=== PATIENT | female | born 1965 | race Caucasian/White ===

== ENCOUNTER 2018-01-25 16:28 | Emergency (ER) | payer MEDICAID, SELFPAY ==
[2018-01-25 16:30] VITALS: BP 142/90; PULSE 78; RESP 18; TEMP 36.8; O2SAT 100; BMI 28.4
[2018-01-25 17:59] LABS: Mucous, Urine 0 SEEN /hpf (<or=2+); Red Blood Cells-Urine 0 SEEN /hpf (0-5); White Blood Cells 0 SEEN /hpf (0-5)
--- NOTE | 2018-01-25 18:02 | CT_ITS ---
STUDY: CT ABDOMEN AND PELVIS WITH CONTRAST REASON FOR EXAM: Female, 52 years old. Abdominal pain since May 2017 after colonoscopy. Recently worsened. RADIATION DOSAGE (If Supplied By Facility): CTDIvol = ( 11.96 ) mGy, DLP = ( 698.56 ) mGycm TECHNIQUE: Transaxial images were obtained from the dome of the diaphragm to the symphysis pubis with oral contrast. 75 ml of Isovue 300 contrast was administered. Sagittal and coronal images were reconstructed. Individualized dose optimization techniques were used for this CT. COMPARISON: None. FINDINGS: The visualized lung bases are unremarkable. The visualized portions of the heart are within normal limits. Normal liver. There is non-visualization of the gallbladder, which may be secondary to either contraction or a prior cholecystectomy. Normal spleen. Normal pancreas. Normal bilateral adrenal glands. Normal right kidney. Normal left kidney. Normal bilateral ureters. Normal visualized stomach. There is marked wall thickening of the terminal ileum. Otherwise normal small intestine. Normal colon. There is non-visualization of the appendix. There is lymphadenopathy in the cecal mesocolon. There is diffuse atherosclerotic calcification of the abdominal aorta, without a demonstrated aneurysm. Normal inferior vena cava. Normal retroperitoneum. The bladder is incompletely distended. There is circumferential wall thickening without mass or filling defect. Normal vaginal cuff. There are multiple phleboliths in the pelvis without lymphadenopathy. There are soft tissue densities along both pelvic sidewalls. The represent retained ovaries. No free air or free fluid is seen within the peritoneal cavity. Normal abdominal wall. Minimal degenerative changes of the lumbar spine CT/Abdomen/Pelvis WITH Contrast IMPRESSION: 1. Thickened distal and terminal ileum with lymphadenopathy in the cecal mesocolon. Ileitis. Question Crohn's disease. 2. Status post cholecystectomy and hysterectomy. There is no other evidence of acute intra-abdominal abnormality. Electronically Signed: Jaren Patiño DO at 20:03 EDT Tel [phone], Service support ,
[2018-01-25 18:03] LABS: Absolute Lymphocyte Count 2.75 X10^3/ul (0.83-4.51); Basophil# 0.02 X10^3/uL; Basophil% 0.1 % (0-1); Eosinophil# 0.06 X10^3/uL; Eosinophils% 0.4 % (0-5); Hematocrit 43.3 % (37-47); Hemoglobin 14.2 g/dl (12.0-15.0); Lymphocyte # 2.75 X10^3/ul (4.0); Lymphocyte % 20.5 % (19-41); Mean Corp Hgb Conc 32.8 g/gl (32-36); Mean Corpuscular Hgb 29.8 pg (27.0-32.0); Mean Corpuscular Volume 90.8 fL (81-99); Mean Platelet Vol. 9.7 fl (6.2-12.0); Monocyte# 0.54 X10^3/uL; Neutrophil # 9.99 X10^3/uL (2.7-7.7); Neutrophil % 74.8 % (47-70); Platelet Count 342 K/mm3 (150-450); RBC Distribution Width CV 12.4 % (11.6-14.6); RBC Distribution Width SD 41.2 fl (35.1-43.9); Red Blood Count 4.77 M/mm3 (4.2-5.4); White Blood Count 13.4 K/mm3 (4.4-11.0)
--- NOTE | 2018-01-25 18:03 | EKG12_ITS ---
Test Reason : ABD PAIN Blood Pressure : / mmHG Vent. Rate : 073 BPM Atrial Rate : 073 BPM P-R Int : 168 ms QRS Dur : 070 ms QT Int : 400 ms P-R-T Axes : 002 092 068 degrees QTc Int : 440 ms Normal sinus rhythm Normal ECG Confirmed by REBEKAH HODGES, BELKIS ([id number]), industrial editor RANDY MORRELL ([id number]) on 01/27/2018 2:17:12 PM Referred By: Pj Vega Confirmed By:BELKIS WELCH MD
[2018-01-25 18:07] LABS: Color, Urine Yellow (Yellow); Glucose, Dipstick Normal (Normal); Ketone-Dipstick Negative (Negative); Leukocyte Esterase-Dipstick Negative /ul (Negative); Nitrite-Dipstick Negative (Negative); Occult Blood-Urine Negative /ul (Negative); POSITIVE COUNT NO; POSITIVE DIFFERENTIAL NO; POSITIVE MORPHOLOGY NO; Protein-Dipstick Negative (Negative); Specific Gravity, Urine 1.015 (1.002-1.030); Urine Bilirubin Dipstick Negative (Negative); Urine Clarity Sl. Cloudy (Clear); Urine Urobilinogen Normal (Normal)
[2018-01-25] MEDS: Ketorolac 30 MG/ML Syringe IV (18:15)
[2018-01-25] MEDS: 0.9% Normal Saline 1,000 ML 1000 ML IV (18:15)
[2018-01-25] MEDS: Ondansetron 4 MG/2 ML Vial IV (18:15)
[2018-01-25 18:19] LABS: Anion Gap 5 (5-15); BUN 16 mg/dL (7-18); Calcium,Total 9.7 mg/dL (8.5-10.1); Chloride 101 mmol/L (98-107); EST Glomerular Filtration Rate 79 mL/min (>60); Est Glom Filt Rate - Afr Amer 96 mL/min (>60); Estimated Creatinine Clearance 57.74 ml/min; Glucose 113 mg/dL (74-106); Potassium 3.7 mmol/L (3.5-5.1); Sodium Level 140 mmol/L (136-145)
[2018-01-25 18:22] LABS: Amorphous Sediment 1+; Bacteria 3+ /hpf (None Seen); Squamous Epithelial Cells - UA 0-5 SEEN /hpf (5-10)
[2018-01-25 18:33] LABS: AST(SGOT) 13 U/L (15-37); Alanine Aminotransfer ALT/SGPT 17 U/L (13-56); Albumin, Serum 3.8 g/dL (3.2-5.0); Alkaline Phosphatase 110 U/L (45-117); Bilirubin, Direct 0.08 mg/dL (0.00-0.30); Globulin 4.2 g/dL (2.2-4.2)
[2018-01-25 18:34] LABS: Lipase 90 U/L (73-393)
--- NOTE | 2018-01-25 19:45 | RAD_ITS ---
STUDY: X-RAY CHEST REASON FOR EXAM: Female, 52 years old. Shortness of breath. TECHNIQUE: PA and lateral views of the chest. COMPARISON: November 30, 2015. FINDINGS: The lungs are clear and expanded. There is no demonstrated pleural abnormality. Normal size heart. Normal mediastinum and pete. Normal visualized pulmonary arteries. Normal visualized aortic arch and descending thoracic aorta. Normal visualized thoracic spine. Normal visualized ribs, clavicles, and shoulders. There is no demonstrated abnormality of the visualized soft tissue structures of the upper abdomen. RAD/Chest PA and Lateral IMPRESSION: No acute cardiopulmonary disease or major interval change. Electronically Signed: Jaren Patiño DO at 20:05 EDT Tel [phone], Service support ,
[2018-01-25 20:59] VITALS: BP 157/73; PULSE 71; RESP 18; O2SAT 100
--- NOTE | 2018-01-25 21:06 | ED.VISSUMM ---
- ER Visit Summary Date of Service: 01/25/18 Chief Complaint: Abdominal pain History of Present Illness: The patient is a 52 F who presents with abdominal pain. She had a colonoscopy last April. She states she has had persistent right-sided abdominal pain ever since that time. She has undergone outpatient workup including multiple laboratory tests ultrasounds and an MRI of the abdomen. She has been following with Dr. Leblanc. She has questionable inflammatory bowel disease. She was to be scheduled for repeat colonoscopy. Today she states her pain has been worse and she also feels short of breath although this may be because her abdomen feels bloated and it is difficult to take a deep breath. No fevers. No vomiting. Physical Examination: Afebrile vitals are stable Moist mucous membranes Heart regular rate and rhythm Lungs are clear Abdomen soft she has right mid and lower abdominal tenderness Alert Test Results: Labs notable for white blood cell count 13.4. Hepatic function lipase unremarkable. Urinalysis showed 3+ bacteria but otherwise normal. This was sent for culture. Chest x-ray shows no acute disease. EKG shows sinus rhythm at a rate of 73. CT of the abdomen and pelvis shows a thickened distal and terminal ileum with lymphadenopathy consistent with ileitis questionable Crohn's disease. Emergency Department Course and Treatment: Patient was treated with IV fluids Toradol Zofran here. She is resting comfortably on reevaluation. I spoke to Dr. Charles,, Dr. Cho's partner. My plan for oral steroids and discharge with outpatient follow-up. Patient understands to return for new or worsening symptoms. Patient discharged. Treatment Plan: [] Disposition: Discharge Impression: Ileitis This note was generated with [employer] dictation software. It may contain incorrect words, spelling, and punctuation that were not noted in review of the chart prior to signing ED Disposition - Plan for ED Patient: Chief Complaint: Abd Pain Referrals: Garret Mcdermott DO [Primary Care Provider] -
--- NOTE | 2018-01-25 21:09 | ED.DEP ---
ED Disposition - Plan for ED Patient: Chief Complaint: Abd Pain Instructions: ED Inflam Bowel Disease Crohn Prescriptions: Prednisone [Deltasone] 60 mg PO DAILY #15 tab Referrals: Garret Mcdermott DO [Primary Care Provider] -
== END 2018-01-25 21:28 | disposition home or self-care (01) ==
PROVIDERS: Emergency Provider Emergency Medicine; Family Provider Student in an Organized Health Care Education/Training Program; PCP Student in an Organized Health Care Education/Training Program
DX: K52.9 Noninfective gastroenteritis and colitis, unspecified (principal); I10 Essential (primary) hypertension; E78.00 Pure hypercholesterolemia, unspecified; F32.9 Major depressive disorder, single episode, unspecified; Z90.49 Acquired absence of other specified parts of digestive tract; Z90.710 Acquired absence of both cervix and uterus; Z79.899 Other long term (current) drug therapy; Z72.0 Tobacco use
CPT/HCPCS: 71046; 74177; 80048; 80076; 81001; 83690; 85025; 93005; 96361; 96374; 96375; 99283; J7030; Q9967; A4216; J2405

== ENCOUNTER → 2018-02-19 14:02 | Outpatient (CLI) | payer MEDICAID, SELFPAY ==
[2018-02-19 14:47] LABS: Hematocrit 39.8 % (37-47); Hemoglobin 12.7 g/dl (12.0-15.0); Mean Corp Hgb Conc 31.9 g/gl (32-36); Mean Corpuscular Hgb 29.6 pg (27.0-32.0); Mean Corpuscular Volume 92.8 fL (81-99); Mean Platelet Vol. 9.7 fl (6.2-12.0); Platelet Count 365 K/mm3 (150-450); RBC Distribution Width CV 12.6 % (11.6-14.6); RBC Distribution Width SD 42.3 fl (35.1-43.9); Red Blood Count 4.29 M/mm3 (4.2-5.4); Scan Indicated on CBC? Y/N NO; White Blood Count 10.7 K/mm3 (4.4-11.0)
[2018-02-19 15:10] LABS: BUN 13 mg/dL (7-18); BUN/Creat Ratio 16.8 RATIO (10-20); Calcium,Total 9.1 mg/dL (8.5-10.1); Chloride 105 mmol/L (98-107); Creatinine, Serum 0.77 mg/dL (0.55-1.02); EST Glomerular Filtration Rate 82 mL/min (>60); Est Glom Filt Rate - Afr Amer 100 mL/min (>60); Glucose 108 mg/dL (74-106); Sodium Level 142 mmol/L (136-145)
[2018-02-19 15:11] LABS: Anion Gap 7 (5-15)
== END ==
PROVIDERS: Family Provider Student in an Organized Health Care Education/Training Program; PCP Student in an Organized Health Care Education/Training Program; Visit Provider Physician Assistant
DX: Z01.810 Encounter for preprocedural cardiovascular examination (principal); Z01.818 Encounter for other preprocedural examination
CPT/HCPCS: 36415; 80048; 85027

== ENCOUNTER 2018-04-22 13:00 | Outpatient (RCR) | payer MEDICAID, SELFPAY ==
--- NOTE | 2018-03-30 09:32 | HP.OTEVAL_ITS ---
Patient's Visit Information DEREJE VIDAL is a 52 year old F, referred to Occupational Therapy by LEEROY Perkins, with a diagnosis of right RF/MF trigger finger. Date of Evaluation: 03/29/18 Occupational Therapist: Kaela Villasenor, OTR/L, CHT - Subjective Subjective: Pt states she had right RF and MF triggering for about 6 months. pt did try cortizone shots but they only lasted for two weeks. pt decided to have have sx. sx was on 2017. pt states now her fingers hurt and she can not open or close her hand without pain. pt is right handed. 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 pt has padded golve to help her with her job tasks. - Pain right hand 1 Pain Intensity Range: 1, 7 - ROM MP: Right RF 0/40 right MF 0/40 PIP: Right RF -10/95 right MF -10/90 DIP: right RF-15/40 right MF 0/40 ROM Comments: pt demo with limited ability to form a composite first- pain and tingling sesation. left hand deom all digit ROM WNL of flex and ext. - Strength Computer Education Professor: right 5# left 50# Lateral Pinch: right 6# left 10# Tripod Pinch: right 2# left 10# - Hand/Wrist Evaluation Total Score of Pain & Functional Sections: 74 - Goals Goal:: pt will demo a right girp strength of 45# to incrase her ind with BADLS and IADLS by d/c Goal:: pt will demo the ability for form a composite fist to manipulate coins by d/c Goal:: pt will report pain no greater than 2/10 with use of right hand with IADLs tasks by d/c Goal:: pt will demo understanding of scar mtg and desensitization by end of 2nd visit. - Rehabilitation General Assessment: pt is S/P right RF/MF trigger finger release. pt demom with scar hypertropy and scar sensitivity, limited digit ROM and decreased ability to place hand flat on table top. pt demo with weak right student career development specialist and pinch strength. The above deficits limit pts ind. with all BADLs and IADLs. pt would benefit from skilled OT services 3x week for 4 weeks to return pt to PLOF with her BADls and IADls. Rehabilitation Potential: Good - Anticipated Interventions Anticipated Interventions: A/AAROM/PROM, Strengthening, Scar Care, Triggerpoint Release, Desensitization, Modalities, Fine Motor Coord/Yamil - Visit Plan Frequency: 2-3x /Week Duration: 4 Weeks TEXT: Thank you for the opportunity to evaluate your patient. For Medicare and Medicare HMO plans, please review the plan of care and approve it. It will need to be FAXED BACK to us at [phone] for Medicare purposes. Please let me know if there are questions or concerns regarding this plan of care. Physician Signature: Date:
--- NOTE | 2018-04-22 16:11 | HP.OTDCSUM_ITS ---
HP - OT D/C Summary It has been my pleasure to treat DEREJE VIDAL under orders from LEEROY Perkins, for the diagnosis of right RF/MF trigger finger for a total of 9 visit(s). Please see the following information for a summary of their discharge status. 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 - Plan Plan: pt. reports that she is ready to be d/t, pt. reports that she is having no difficulties with her functional tasks or ADL's. - D/C Information Discharge Comments: pt. made great progress in therapy, scar tissue decreased, pain sensitivity decreased, and pt. strength has increased. pt. reports that she is I with her ADL's and reports no other concerns at this time. If there are questions or concerns regarding this patient's occupational therapy, please fell free to call me at [phone]. Thank you for the referral of this patient. Sincerely, Kaela Villasenor, OTR/L, CHT
== END 2018-04-22 19:00 | disposition home or self-care (01) ==
LOC: OT 13:00
PROVIDERS: Family Provider Student in an Organized Health Care Education/Training Program; PCP Student in an Organized Health Care Education/Training Program; Visit Provider Physician Assistant Surgical
DX: M65.341 Trigger finger, right ring finger (principal); M65.331 Trigger finger, right middle finger
CPT/HCPCS: 97035; 97110; 97140; 97166

== ENCOUNTER → 2019-01-17 | Outpatient (CLI) | payer OTHER, SELFPAY ==
--- NOTE | 2019-01-14 17:39 | HP.PCM_ITS ---
History and Physical Date of Admission: 01/17/19 HISTORY AND PHYSICAL - BREAST COMPLAINT ? Marleen Peterson 1965 ? ? REFERRING PHYSICIAN: ??Garret Mcdermott, DO ? CHIEF COMPLAINT:???Bilateral abnormal mammograms-left breast microcalcifications, right breast nodule ? HPI: The patient is a 53 year old female with a complaint of?an abnormal mammogram. ?The patient had a mammogram with ultrasound on December 27, 2018 for screening with follow-up diagnostic and right breast ultrasound on January 04, 2019?which demonstrated: ? IMPRESSION: SUSPICIOUS OF MALIGNANCY The round density in the right breast at 11 o'clock anterior depth is at an intermediate suspicion for malignancy. The multiple branching calcifications in the left breast central to the nipple middle depth are at a moderate suspicion for malignancy. ?A stereotactic biopsy is recommended. LIMITED ULTRASOUND OF RIGHT BREAST AND AXILLA: 01/04/2019 RESULT: Comparison is made to exams dated: ?12/27/2018 mammogram, 06/24/2017 mammogram, and 05/29/2016 mammogram - [facility]. Color flow and real-time ultrasound of the right breast 9 o'clock, and axilla regions were performed. ?Lombardo scale images of the real-time examination were reviewed. There is 6 mm x 5 mm irregular lesion in the right breast at 9 o'clock anterior depth. ?This irregular lesion is of mixed echogenicity. IMPRESSION: SUSPICIOUS OF MALIGNANCY The 6 mm x 5 mm irregular lesion in the right breast is at an intermediate suspicion for malignancy. ?A stereotactic biopsy is recommended. SUMMARY: Findings and recommendations discussed with the patient. Patient scheduled for a surgical consult. ? ? The patient denies a history of breast masses. ?She does?perform a self breast exam routinely -?she feels no suspicious abnormalities but has lost 50 pounds due to Crohn's disease and as a result notes her breast exam is changed significantly as her breasts are decreased in size and density. ?She notes no skin changes. ?She denies nipple discharge. ?She notes no axillary masses. ?She notes no family history of breast problems. ?She notes no significant breast trauma or breast difficulties in the past. ? The patient has had?3?pregnancies. ??Her last mammogram was June 24, 2017. ?Her last menstrual period was July 1988. ?Her first menstrual period was 1976. ? The patient is being seen by me today at the request of DrRegina?Garret Mcdermott, DO?for my opinion and advice regarding bilateral abnormal mammograms.? ? PAST?MEDICAL?HISTORY PAST MEDICAL HISTORY Diagnosis Date ? Anxiety ? ? Colitis 09/09/2017 ? Headache(784.0) ? ? from cervical disc disease ? Hyperlipidemia ? ? Hypertension ? ? Neck pain 2004 ? Tobacco use disorder ? ? Vitamin D deficiency 2012 ? PAST?SURGICAL?HISTORY PAST SURGICAL HISTORY Procedure Laterality Date ? DELIVERY ONLY ? 1987 ? CHOLECYSTECTOMY ? 1989 ? emergency, open procedure ? COLONOSCOP W/ OR W/O BRSH SPEC ? 04/28/2017 ? biopsies negative for colitis ? COLONOSCOPY ? 2011 ? COLONOSCOPY ? 02/2018 ? HAND SURGERY HX Right 01/2018 ? trigger finger ? HYSTERECTOMY HX ? 1988 ? MARILYN/BSO, menorrhagia ? PAST SURGICAL HISTORY OF ? 1986 ? left tubal , lysis of adhesions ? TONSILLECTOMY HX ? 1982 ? ? ? CURRENT?MEDICATIONS Current Outpatient Medications Medication Sig Dispense Refill ? Cholecalciferol, Vitamin D3, (VITAMIN D-3) 2,000 unit cap Take 1 capsule by mouth once daily. 30 capsule 5 ? sertraline (ZOLOFT) 100 mg tablet Take 2 tablets by mouth once daily. 60 tablet 5 ? dicyclomine (BENTYL) 20 mg tablet Take 1 tablet by mouth three times daily before meals. 90 tablet 3 ? naproxen (NAPROSYN) 500 mg tablet Take 1 tablet by mouth twice daily with meals. 60 tablet 1 ? cyclobenzaprine (FLEXERIL) 10 mg tablet Take 1 tablet by mouth three times daily as needed. 90 tablet 5 ? hyoscyamine sublingual (LEVSIN SL) 0.125 mg subl Dissolve 1 tablet under the tongue every 4 hours as needed (MAx 12 tabs per day) for up to 20 days. 20 tablet 0 ? tolterodine ER (DETROL LA) 4 mg 24 hr capsule Take 1 capsule by mouth once daily. 30 capsule 3 ? losartan (COZAAR) 25 mg tablet Take 1 tablet by mouth once daily. 30 tablet 11 ? buPROPion SR (ZYBAN SR; WELLBUTRIN SR) 150 mg 12 hr tablet TAKE 1 TABLET BY MOUTH TWICE DAILY 60 tablet 3 ? Omeprazole 20 mg TbEC Take 1 tablet twice a day 60 tablet 2 ? peg 3350-Electrolytes (GOLYTELY) 236-22.74-6.74 -5.86 gram suspension Refer to printed patient instructions that will be mailed to you. 4 L 0 ? peg 3350-Electrolytes (GOLYTELY) 236-22.74-6.74 -5.86 gram suspension Refer to printed patient instructions that will be mailed to you. 4 L 0 ? DAVID ROOT, BULK, MISC ? BIOTIN ORAL Take by mouth. ? ? ? KEY SEAL ROOT ORAL Take by mouth. ? ? ? dicyclomine (BENTYL) 10 mg capsule Take 1 capsule by mouth four times daily as needed. 120 capsule 2 ? estradiol (ESTRACE) 0.01 % (0.1 mg/gram) vaginal cream 2-3 TIMES PER WEEK 1 Tube 3 ? pravastatin (PRAVACHOL) 10 mg tablet Take 1 tablet by mouth once daily. 30 tablet 3 ? No current facility-administered medications for this visit.? ? ? ALLERGIES:?Latex, Natural Rubber ? PERSONAL HISTORY:? 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 ? FAMILY HISTORY:? FAMILY?HISTORY FAMILY HISTORY Problem Relation Age of Onset ? Alzheimer's Disease Mother ? ? other (lupus) Sister ? ? other (rectal bleeding) Sister ? ? Alzheimer's Disease Maternal Grandmother ? ? Alzheimer's Disease Maternal Uncle ?x2 ? Alzheimer's Disease Maternal Aunt ?x3 ? Coronary Artery Disease Maternal Aunt ?x2 ? ? REVIEW OF SYMPTOMS: ??The review of systems data was entered by the nurse and reviewed by me ? Nursing Notes: Feliberto Deonte VALENCIA ?01/06/2019 ?8:18 AM ?Signed REVIEW OF SYSTEMS: ?General:???The patient denies fatigue, NOTES weight loss, denies weight gain, denies feeling hot, and NOTES feelings of cold. ?Eyes: ?The patient denies glaucoma, denies eye injury/surgery, wears glasses or contacts. ?Ear/Nose/Throat: ?The patient denies allergies, denies hayfever, denies ear infections, and denies bloody noses. ?Cardiovascular: ?The patient denies chest pain, denies heart disease, NOTES high blood pressure,denies cardiac stent, denies prior heart attack, denies irregular heart beat, NOTES high cholesterol, ?denies poor circulation, denies heart failure, other cardiac issues, denies claudication, denies cold feet, denies peripheral arterial stent. ?Respiratory: ?The patient denies tuberculosis, denies pneumonia, denies frequent cough, denies pulmonary embolism, denies shortness of breath, and denies coughing up blood. ?Gastrointestinal: ?The patient denies difficulty swallowing, denies acid reflux, denies ulcers, denies vomiting, denies jaundice/hepatitis, NOTES gallbladder problems, denies black or tarry stools, denies hemorrhoids, NOTES bleeding from rectum, denies diverticulitis, NOTES constipation, NOTES diarrhea, NOTES loss of stool control, and denies hernias. ?Kidney/Bladder: ?The patient denies kidney stones, denies urine infections, and denies bloody urine. ?Skin: ?The patient denies a history of skin cancer, denies bleeding/changing moles, and denies a history of skin rash. ?Neurologic: ?The patient denies a history of epilepsy/convulsions, NOTES headaches, denies head/spinal injuries, and denies stroke/TIA. ?Psychiatric: ?The patient NOTES psychiatric medications, NOTES depression, and denies voices, denies substance abuse. ?Endocrine: ?The patient denies thyroid disorders, denies diabetes, and denies hormonal problems. ?Hematologic: ?The patient denies a history of bruising, denies bleeding, and denies anemia, denies blood clots. ?Infections: ?The patient NOTES a history of measles and mumps, denies rheumatic fever, and denies sexually transmitted diseases. ?Musculoskeletal: ?The patient denies back pain/injury, denies back problems, denies sciatica, NOTES knee/foot trouble, NOTES arthritis, or denies gout. ? ? When was patient's last Mammogram screening?12/29 ? ?Last Colonoscopy: ?04/28 ? Feliberto Clemons LPN ? PHYSICAL EXAMINATION: ? General: ?The patient is 53 year old female, well nourished, well hydrated in no acute distress. ?The patient is oriented to time, place, and person. ? VITALS:?Blood pressure 142/78, pulse 76, temperature 36.7 ?C (98 ?F), height 152.4 cm (5'), weight 61.7 kg (136 lb), SpO2 99 %.?Body mass index is 26.56 kg/m?.? ? HEENT: ?Normal cephalic, ataumatic, pupils are equally round, sclera are anicteric, mucous membranes are moist, oropharynx is clear. ?Neck has no masses, asymmetry or lymphadenopathy. ?Thyroid is unremarkable. ? Respiratory: ?Clear to auscultation and percussion. ?Normal respiratory excursion and pattern. ? Cardiac: ?Examination is regular rate and rhythm. ? ? Breast: ?Visual inspection reveals no retractions, nipple inversion, or skin changes. ?Palpation of the right breast reveals no dominant or suspicious masses, but multiple benign-feeling nodules. ?Palpation of the left breast reveals no dominant or suspicious masses, but multiple benign-feeling nodules. ?Axillary exam demonstrates no suspicious masses in either the left or right axilla. ?There is no nipple discharge expressed from either the left or right breast. ? LABORATORY VALUES: As Noted ? RADIOLOGIC STUDIES: ?As Noted ? PROCEDURE: ?Ultrasound Guided Core Breast Biopsy ? The risks, benefits and anticipated outcomes of the procedure, the risks and benefits of the alternatives to the procedure, and the roles and tasks of the personnel to be involved, were discussed with the patient, and the patient consents to the procedure and agrees to proceed. ? After explaining the procedure and consent was obtained,Marleen was positioned. ?The abnormality in the right breast 9:00 position?breast was identified by ultrasound. ?Lidocaine was injected in to the skin and a small stab incision was made. ?The [employer] core?core biopsy needle was inserted into the stab incision and advanced. ?Multiple core were obtained with ultrasound demonstrating targeting into the lesion. ?A marker clip was then placed via ultrasound guidance. ??Steristrips were applied to the incision. ?A bandage was applied to the needle site. ?Marleen tolerated the procedure well. ? ? Assessment ? IMPRESSION:?Status post ultrasound-guided core biopsy right breast, left breast microcalcifications ? PLAN:??I plan to perform a?stereotactic biopsy of the left breast. ?The planned surgical procedure was discussed extensively with the patient. ?The risks, benefits, anticipated outcomes and possible complications were mentioned. ?My staff has also explained the procedure in understandable terms and the patient was given the option to take printed material concerning the planned procedure. ?The patient had the opportunity to ask questions concerning the planned procedure. ?The patient freely consents to the planned procedure. ? The patient will return after left breast stereotactic biopsy area we'll plan for bilateral mammograms posterior tachycardia biopsy to assure that a marking clip is seen in both locations. ? Diagnoses:?(R92.8) Abnormal finding on breast imaging ?(primary encounter diagnosis) ? My findings have been communicated to ??Garret cMdermott, DO?via shared edical record. ?This note will be forwarded to Dr. Garret Mcdermott, . ? Return to Clinic: The patient is instructed to follow-up with me?after the testing has been completed. ? Hipolito Stahl MD
--- NOTE | 2019-01-17 | IMM_PTH ---
PATIENT: DEREJE VIDAL LOC: [facility] U#:[id number] AGE/SX: 53/F ROOM: RE01/17/[address]: Dr. Hipolito Stahl MD : 1965 BED: DIS: 01/17/2019 SPEC #: [id number] RECD: 01/18/19 16:27 STATUS: RAFI REQ #: [id number] VERONA: 01/17/19 00:[address]: Hipolito Stahl DEPT: IMMUNOHISTOCHEMISTRY RECD BY: Noreen Washington ENTERED: 01/18/19 16:27 SP TYPE: IMMUNO OTHR DR: Dr. Garret Mcdermott DO Tissues: Left breast, NOS Procedures: CALPONIN-1 (add) CK8 (add) E-CAD (add) HER2 CELIA (add) ME (add) P40 (add) ER (initial) PHYSICIAN & INSTITUTION [place] [address] SPECIMEN INFORMATION: Tissue Source: Left breast Clinical Info: Left breast calcifications Specimen Number: [id number] #2 CPT code: 87417, 87807 x3, 23185 x3 METHODOLOGY: Deparaffinized sections of prefer/formalin-fixed tissue or PAP/DQ stained slides are incubated with monoclonal/polyclonal antibodies/oligonucleotide probes. Localization is made via biotin free immunoperoxidase method. Appropriate controls are performed and reacted as expected. Results on target cell population are indicated in the following table: RESULTS: ANTIBODY / CLONE RESULT Block 2 E-Cad (ECH-6) positive CK8 (95bswiX02) positive P40 (BC28) positive Calponin-1 (PW810X) positive MORPHOMETRIC ANALYSIS ER (clone 6F11) >95%, strong intensity ME (clone 16/1E2) 25%, weak intensity Her-2Neu (clone CB11) 2+ (equivocal) The prognostic test for HER2 is performed on formalin-fixed paraffin embedded tissue. A 3+ (positive) staining pattern is defined as intense, homogeneous, complete, circumferential membranous staining in >10% of contiguous tumor cells. A similar weak (2+) staining pattern is interpreted as equivocal. NI follow-up testing is recommended for all equivocal cases. Positivity/negativity for ER/ME is reported if > or < 1% of the tumor cells are immuno- reactive, respectively. The ASCO/CAP criteria is used for scoring. Reference: Journal of Clinical Oncology, 2013; 31:8724-1132 & 2010; 16:3546-6169. Duration of fixation: 6.5 Hrs; Sample Adequate: Yes. These assays have not been validated on decalcified tissues. Results should be interpreted with caution given the likelihood of false negativity on decalcified specimens. These tests were developed and their performance characteristics determined by [facility]. They may not have been cleared or approved by the [place]. Food and Drug Administration. The FDA has determined that such clearance or approval is not necessary. INTERPRETATION: Left breast, stereotactic core biopsy: Ductal carcinoma in situ. SJ:nayan 01/19/19
--- NOTE | 2019-01-17 13:00 | BRBX_PTH ---
PATIENT: DEREJE VIDAL LOC: [facility] U#:[id number] AGE/SX: 53/F ROOM: RE01/17/[address]: Dr. Hipolito Stahl MD : 1965 BED: DIS: 01/17/2019 SPEC #: [id number] RECD: 01/17/19 14:24 STATUS: RAFI REMoses #: [id number] VERONA: 01/17/19 13:[address]: Hipolito Stahl DEPT: SURGICAL PATHOLOGY RECD BY: Won Ramesh ENTERED: 01/17/19 15:03 SP TYPE: BREAST BX OTHR DR: Dr. Garret Mcdermott DO Tissues: Left breast, NOS Procedures: Surgery Specimen Level IV HEADER OPERATION: Left breast stereotactic biopsy PRE-OP DIAGNOSIS: Left breast calcifications TISSUE SUBMITTED: Left breast core tissue ISCHEMIC TIME: 1 minute FIXATION TIME: 6.5 hours MICROSCOPIC DIAGNOSIS Left breast, stereotactic core biopsy: Ductal carcinoma in situ with the following characteristics: Pattern - solid, comedo, cribriform. Nuclear Grade - high Necrosis - present, central (expansive comedo necrosis). Calcifications - present See comment. BALAJI:nayan 01/18/19 COMMENT Immunohistochemistry ([id number]) supports the above diagnosis. ER/ME/Tlj9uco studies are being performed on sections of tumor and the results from this study will be reported separately ([id number]). Case has been reviewed in consultation with Dr. Hendrix who concurs with the above diagnosis. IDC:AM MICROSCOPIC DESCRIPTION Slides are reviewed. GROSS DESCRIPTION Received is one container labeled with the patient's name and not further designated. The specimen consists of multiple elongated fragments of wheeler-yellow fibroadipose tissue that in aggregate measure 7.5 x 3 x 0.3 cm. The entire specimen is submitted in three cassettes. / BALAJI:nayan 01/17/19 TC:0 CPT: 52840
--- NOTE | 2019-01-17 14:14 | BI_ITS ---
MAMMOGRAPHY - BILATERAL DIAGNOSTIC REASON FOR EXAM: Female, 53 years old. Follow-up for left stereotactic breast biopsy. Recent ultrasound-guided right breast biopsy. PERTINENT HISTORY: Non-contributory. TECHNIQUE: Digital bilateral breast bigg (3D mammographic acquisition) in the CC and MLO projections. 2-D mediolateral oblique (MLO) and craniocaudad (CC) views of both breasts were obtained. CAD: Full Field Digital Mammography with Computer Added Detection was performed. COMPARISON: Comparison is made with prior examination dated January 04, 2019. FINDINGS: Breast Composition: There are scattered areas of fibroglandular density. A tissue clip marker is seen in the slightly upper lateral deep portion of the left breast. This is in keeping with stereotactic breast biopsy. The calcifications have been removed. No other significant abnormalities are identified. BI/DIAG MAMM W/CAD, BILAT IMPRESSION: Status post stereotactic breast biopsy. The tissue clip marker is seen within the biopsy site. The calcifications have been removed. ASSESSMENT CATEGORY: BIRADS Category 2: Benign. A letter regarding these results will be sent to the patient by the facility within 30 days. Approximately 10% of breast cancers are not detected by mammography. A normal mammogram should not delay biopsy of a clinically suspicious abnormality. Electronically Signed: Manfred Gomez, at 15:44 EDT , Service support ,
--- NOTE | 2019-01-17 22:06 | OP.PCM_ITS ---
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 The left breast was positioned in the true lateral to medial position on the Perez stereotactic table. Mammographic image demonstrated the area of abnormality to be located in the center of the radiograph. Stereotactic images were then obtained which demonstrated good positioning of the abnormality for biopsy with good stroke candelario parameters. The breast was cleaned with Betadine area did one percent lidocaine was used to anesthetize the skin and a small stab incision made. An 8-gauge mammotome needle was placed into the pre- fire position. Stereotactic images demonstrated good positioning around the planned biopsy site. Local anesthetic injected deeply in the breast. The needle was deployed. Post deployment images demonstrated good positioning of the planned biopsy site. Multiple vacuum-assisted samples were obtained and [id number] fashion. Specimen radiograph demonstrated micro-calcifications in the sample. A gel marker clip was deployed. Post biopsy images demonstrated good position of the clip relative the biopsy cavity. The breast was removed from compression. Steri-Strips and a dressing applied. Post procedure mammogram images were obtained.
== END | disposition home or self-care (01) ==
LOC: BIRAD 12:34
PROVIDERS: Family Provider Student in an Organized Health Care Education/Training Program; PCP Student in an Organized Health Care Education/Training Program; Referring Provider Surgery; Visit Provider Surgery
DX: D05.12 Intraductal carcinoma in situ of left breast (principal); K50.90 Crohn's disease, unspecified, without complications; F41.9 Anxiety disorder, unspecified; E78.00 Pure hypercholesterolemia, unspecified; I10 Essential (primary) hypertension; F32.9 Major depressive disorder, single episode, unspecified; M19.90 Unspecified osteoarthritis, unspecified site; Z79.899 Other long term (current) drug therapy; F17.210 Nicotine dependence, cigarettes, uncomplicated
CPT/HCPCS: 19081; 77066; 88305; 88341; 88342; J7050; A4648

== ENCOUNTER 2019-02-21 14:29 | Observation (INO) | payer OTHER, SELFPAY ==
--- NOTE | 2019-02-16 17:09 | EKG12_ITS ---
Test Reason : PRE OP Blood Pressure : / mmHG Vent. Rate : 071 BPM Atrial Rate : 071 BPM P-R Int : 162 ms QRS Dur : 072 ms QT Int : 398 ms P-R-T Axes : 014 062 044 degrees QTc Int : 432 ms Normal sinus rhythm Normal ECG Confirmed by HANNAH CAST ([id number]), magazine editor ALBA CARROLL ([id number]) on 02/17/2019 1:52:24 PM Referred By: Hipolito Stahl Confirmed By:HANNAH CAST
[2019-02-16 17:28] LABS: Hematocrit 35.8 % (37-47); Hemoglobin 11.6 g/dL (12.0-15.0); Mean Corp Hgb Conc 32.4 g/dL (32-36); Mean Corpuscular Hgb 29.3 pg (27.0-32.0); Mean Corpuscular Volume 90.4 fL (81-99); Platelet Count 288 K/mm3 (150-450); RBC Distribution Width CV 13.1 % (11.6-14.6); RBC Distribution Width SD 43.2 fl (35.1-43.9); Red Blood Count 3.96 M/mm3 (4.2-5.4); White Blood Count 11.6 K/mm3 (4.4-11.0)
[2019-02-16 17:58] LABS: Anion Gap 7 (5-15); BUN 19 mg/dL (7-18); BUN/Creat Ratio 22.6 RATIO (10-20); Calcium,Total 8.8 mg/dL (8.5-10.1); Chloride 106 mmol/L (98-107); Creatinine, Serum 0.84 mg/dL (0.55-1.02); EST Glomerular Filtration Rate 75 mL/min (>60); Est Glom Filt Rate - Afr Amer 90 mL/min (>60); Glucose 102 mg/dL (74-106); Potassium 4.2 mmol/L (3.5-5.1); Sodium Level 142 mmol/L (136-145)
--- NOTE | 2019-02-18 18:54 | HP.PCM_ITS ---
History and Physical Date of Admission: 02/21/19 HISTORY AND PHYSICAL - BREAST CANCER ? Marleen Peterson 1965 February 01, 2019 ? ? REFERRING PHYSICIAN: ??Garret Mcdermott, DO ? CHIEF COMPLAINT: ?BREAST CANCER - ?- POST RIGHT ULTRASOUND GUIDED DCIS WITH MICROINVASION AND LEFT STEREOTACTIC GUIDED CORE BIOPSY - DCIS ? HPI: The patient is a 53 year old female with a complaint of an abnormal mammogram. ?The patient had a mammogram with ultrasound on December 27, 2018 for screening with follow-up diagnostic and right breast ultrasound on January 04, 2019 which demonstrated: ? IMPRESSION: SUSPICIOUS OF MALIGNANCY The round density in the right breast at 11 o'clock anterior depth is at an intermediate suspicion for malignancy. The multiple branching calcifications in the left breast central to the nipple middle depth are at a moderate suspicion for malignancy. ?A stereotactic biopsy is recommended. LIMITED ULTRASOUND OF RIGHT BREAST AND AXILLA: 01/04/2019 RESULT: Comparison is made to exams dated: ?12/27/2018 mammogram, 06/24/2017 mammogram, and 05/29/2016 mammogram - [facility]. Color flow and real-time ultrasound of the right breast 9 o'clock, and axilla regions were performed. ?Lombardo scale images of the real-time examination were reviewed. There is 6 mm x 5 mm irregular lesion in the right breast at 9 o'clock anterior depth. ?This irregular lesion is of mixed echogenicity. IMPRESSION: SUSPICIOUS OF MALIGNANCY The 6 mm x 5 mm irregular lesion in the right breast is at an intermediate suspicion for malignancy. ?A stereotactic biopsy is recommended. SUMMARY: Findings and recommendations discussed with the patient. Patient scheduled for a surgical consult. ? ? The patient denies a history of breast masses. ?She does perform a self breast exam routinely - she feels no suspicious abnormalities but has lost 50 pounds due to Crohn's disease and as a result notes her breast exam is changed significantly as her breasts are decreased in size and density. ?She notes no skin changes. ?She denies nipple discharge. ?She notes no axillary masses. ?She notes no family history of breast problems. ?She notes no significant breast trauma or breast difficulties in the past. ? The patient has had 3 pregnancies. ??Her last mammogram was June 24, 2017. ?Her last menstrual period was July 1988. ?Her first menstrual period was 1976. ? ? I performed a stereotactic biopsy of the left breast at [facility] on January 17, 2019 and ultrasound guided core biopsy of the right breast biopsy for her abnormal mammogram on January 06, 2019. ?The pathology returned as: ? ? RIGHT BREAST------ FINAL DIAGNOSIS Right breast, needle core biopsy - Foci of microinvasive carcinoma arising in a background of ductal carcinoma in situ, nuclear grades 1 and 2, cribriform and solid types with comedo necrosis (please see comment). EDK/lbk 01/07/[address] Marcial Mo has reviewed select slides and concurs with the diagnosis of both microinvasion and ductal carcinoma in situ. An immunohistochemical stain for estrogen receptor will be performed and reported separately. ? Estrogen Receptor (ER) ???Positive (99%) ???Stain intensity: strong ? LEFT BREAST - ? MICROSCOPIC DIAGNOSIS Left breast, stereotactic core biopsy: ?Ductal carcinoma in situ with the following characteristics: Pattern ? solid, comedo, cribriform. Nuclear Grade - high Necrosis ? present, central (expansive comedo necrosis). Calcifications - present ?See comment. ? ? RESULTS: ANTIBODY / CLONE ?RESULT Block 2 E-Cad ?(ECH-6) ?positive CK8 ?(12bghyB47)?positive P40 ?(BC28)?positive Calponin-1 (WO743J) ?positive ? MORPHOMETRIC ANALYSIS ? ER (clone [id number]) ?>95%, strong intensity LA (clone 16/1E2) ?25%, weak intensity Her-2Neu (clone CB11) ?2+ (equivocal) ? ? The patient notes significant left bruising since the procedure. ? She was referred for genetic counseling and MRI. ?Genetic counseling recommended genetic testing. ?The patient has had this testing and understands approximately 4 weeks to these results have returned. ?MRI was obtained yesterday. ?This demonstrated: ? IMPRESSION: SUSPICIOUS FINDING - BIOPSY SHOULD BE CONSIDERED Biopsy clip atrifact center to the nipple middle depth left breast with no significant surrounding enhancement correlates to the area of branching calcifications on mammogram and is a biopsy proven DCIS. Surgical consult is recommended. The 0.6 cm x 0.6 cm x 0.5 cm mass in the right breast at 10 o'clock middle depth is suspicious of malignancy. ?A second look ultrasound is recommended. ?If no sonographic correlate is identified, MRI guided biopsy is recommended. The 0.6 cm x 0.3 cm x 0.5 cm mass in the right breast at 9 o'clock middle depth is a known biopsy positive for malignancy. ?A surgical consult is recommended. SUMMARY: These results and recommendations will be discussed with the patient by Liyah Cody RN. The patient will schedule the ultrasound with Liyah Cody. ? ? Given the results of another area of suspicion the right breast, the patient was spoken with her friends and family including her and has returned today wishing undergo bilateral mastectomy. ?I discussed with the patient today for an extended period of time the risks and benefits of mastectomy without reconstruction, of mastectomy with reconstruction, and bilateral lumpectomy with right axillary sentinel lymph node biopsy ? We extensively discussed her diagnosis and at the last visit discussed her surgical options including breast conservation surgical procedures, mastectomy without reconstruction and mastectomy with reconstruction. ?The patient has elected to undergo a BILATERAL mastectomy with RIGHT sentinel lymph node biopsy with possible axillary dissection. ? She returned today after noting what she thought was increasing pain and swelling in the area of the left breast biopsy site. ? PAST?MEDICAL?HISTORY PAST MEDICAL HISTORY Diagnosis Date ? Anxiety ? ? BRCA negative 02/16/2019 ? Integrated BRCAnalysis with myRisk ? Colitis 09/09/2017 ? Headache(784.0) ? ? from cervical disc disease ? Hyperlipidemia ? ? Hypertension ? ? Neck pain 2004 ? Tobacco use disorder ? ? Vitamin D deficiency 2012 ? PAST?SURGICAL?HISTORY PAST SURGICAL HISTORY Procedure Laterality Date ? DELIVERY ONLY ? 1987 ? CHOLECYSTECTOMY ? 1989 ? emergency, open procedure ? COLONOSCOP W/ OR W/O BRSH SPEC ? 04/28/2017 ? biopsies negative for colitis ? COLONOSCOPY ? 2011 ? COLONOSCOPY ? 02/2018 ? HAND SURGERY HX Right 01/2018 ? trigger finger ? HYSTERECTOMY HX ? 1988 ? MARILYN/BSO, menorrhagia ? PAST SURGICAL HISTORY OF ? 1986 ? left tubal , lysis of adhesions ? TONSILLECTOMY HX ? 1982 ? US BREAST NEEDLE CORE BIOPSY LT ? 01/17/2019 ? left vacuum assisted core needle biopsy/stereotactic biopsy w/specimen radiograph and gel marker placement ? ? ? CURRENT?MEDICATIONS Current Outpatient Medications Medication Sig Dispense Refill ? naproxen (NAPROSYN) 500 mg tablet TAKE 1 TABLET BY MOUTH TWICE DAILY WITH MEALS 60 tablet 1 ? hyoscyamine sublingual (LEVSIN SL) 0.125 mg subl DISSOLVE 1 TABLET UNDER TONGUE EVERY 4 HOURS NEEDED (MAX ?12 ?TABS ?PER ?DAY) ?FOR ?UP ?TO ?20 ?DAYS 20 tablet 0 ? tolterodine ER (DETROL LA) 4 mg 24 hr capsule Take 1 capsule by mouth once daily. 30 capsule 3 ? dicyclomine (BENTYL) 20 mg tablet Take 1 tablet by mouth three times daily before meals. 90 tablet 3 ? Cholecalciferol, Vitamin D3, (VITAMIN D-3) 2,000 unit cap Take 1 capsule by mouth once daily. 30 capsule 5 ? sertraline (ZOLOFT) 100 mg tablet Take 2 tablets by mouth once daily. 60 tablet 5 ? cyclobenzaprine (FLEXERIL) 10 mg tablet Take 1 tablet by mouth three times daily as needed. 90 tablet 5 ? losartan (COZAAR) 25 mg tablet Take 1 tablet by mouth once daily. 30 tablet 11 ? buPROPion SR (ZYBAN SR; WELLBUTRIN SR) 150 mg 12 hr tablet TAKE 1 TABLET BY MOUTH TWICE DAILY 60 tablet 3 ? BIOTIN ORAL Take by mouth. ? ? ? pravastatin (PRAVACHOL) 10 mg tablet Take 1 tablet by mouth once daily. 30 tablet 3 ? peg 3350-Electrolytes (GOLYTELY) 236-22.74-6.74 -5.86 gram suspension Refer to printed patient instructions that will be mailed to you. 4 L 0 ? peg 3350-Electrolytes (GOLYTELY) 236-22.74-6.74 -5.86 gram suspension Refer to printed patient instructions that will be mailed to you. 4 L 0 ? Omeprazole 20 mg TbEC Take 1 tablet twice a day 60 tablet 2 ? DAVID ROOT, BULK, MISC ? KEY SEAL ROOT ORAL Take by mouth. ? ? ? dicyclomine (BENTYL) 10 mg capsule Take 1 capsule by mouth four times daily as needed. 120 capsule 2 ? estradiol (ESTRACE) 0.01 % (0.1 mg/gram) vaginal cream 2-3 TIMES PER WEEK 1 Tube 3 ? No current facility-administered medications for this visit.? ? ? ALLERGIES:?Latex, Natural Rubber ? PERSONAL HISTORY:? 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 ?Employer: [employer] ??Social Needs ?Financial resource strain: Not on file ?Food insecurity: ?Worry: Not on file ?Inability: Not on file ?Transportation needs: ?Medical: Not on file ?Non-medical: Not on file ??Tobacco Use ?Smoking status: Current Every Day Smoker ?Packs/day: 0.50 ?Years: 30.00 ?Pack years: 15 ?Types: Cigarettes ?Start date: 01/06/1979 ?Smokeless tobacco: Never Used ??Substance and Sexual Activity ?Alcohol use: No ?Drug use: No ?Sexual activity: Yes ?Partners: Male ??Lifestyle ?Physical activity: ?Days per week: Not on file ?Minutes per session: Not on file ?Stress: Not on file ??Relationships ?Social connections: ?Talks on phone: Not on file ?Gets together: Not on file ?Attends catholic service: Not on file ?Active member of club or organization: Not on file ?Attends meetings of clubs or organizations: Not on file ?Relationship status: Not on file ?Intimate partner violence: ?Fear of current or ex partner: Not on file ?Emotionally abused: Not on file ?Physically abused: Not on file ?Forced sexual activity: Not on file ??Other Topics ?Concerns: ?Not on file ??Social History Narrative ?Goes by Manuel ?? ? FAMILY HISTORY:? FAMILY?HISTORY FAMILY HISTORY Problem Relation Age of Onset ? Alzheimer's Disease Mother ? ? other (lupus) Sister ? ? other (rectal bleeding) Sister ? ? Alzheimer's Disease Maternal Grandmother ? ? Alzheimer's Disease Maternal Uncle ?x2 ? Alzheimer's Disease Maternal Aunt ?x3 ? Coronary Artery Disease Maternal Aunt ?x2 ? ? REVIEW OF SYMPTOMS: ??The review of systems data was entered by the nurse and reviewed by me ? There are no exam notes on file for this visit. ? Nursing Notes: Feliberto Clemons LPN ?01/06/2019 ?8:18 AM ?Signed REVIEW OF SYSTEMS: ?General:???The patient denies fatigue, NOTES weight loss, denies weight gain, denies feeling hot, and NOTES feelings of cold. ?Eyes: ?The patient denies glaucoma, denies eye injury/surgery, wears glasses or contacts. ?Ear/Nose/Throat: ?The patient denies allergies, denies hayfever, denies ear infections, and denies bloody noses. ?Cardiovascular: ?The patient denies chest pain, denies heart disease, NOTES high blood pressure,denies cardiac stent, denies prior heart attack, denies irregular heart beat, NOTES high cholesterol, ?denies poor circulation, denies heart failure, other cardiac issues, denies claudication, denies cold feet, denies peripheral arterial stent. ?Respiratory: ?The patient denies tuberculosis, denies pneumonia, denies frequent cough, denies pulmonary embolism, denies shortness of breath, and denies coughing up blood. ?Gastrointestinal: ?The patient denies difficulty swallowing, denies acid reflux, denies ulcers, denies vomiting, denies jaundice/hepatitis, NOTES gallbladder problems, denies black or tarry stools, denies hemorrhoids, NOTES bleeding from rectum, denies diverticulitis, NOTES constipation, NOTES diarrhea, NOTES loss of stool control, and denies hernias. ?Kidney/Bladder: ?The patient denies kidney stones, denies urine infections, and denies bloody urine. ?Skin: ?The patient denies a history of skin cancer, denies bleeding/changing moles, and denies a history of skin rash. ?Neurologic: ?The patient denies a history of epilepsy/convulsions, NOTES headaches, denies head/spinal injuries, and denies stroke/TIA. ?Psychiatric: ?The patient NOTES psychiatric medications, NOTES depression, and denies voices, denies substance abuse. ?Endocrine: ?The patient denies thyroid disorders, denies diabetes, and denies hormonal problems. ?Hematologic: ?The patient denies a history of bruising, denies bleeding, and denies anemia, denies blood clots. ?Infections: ?The patient NOTES a history of measles and mumps, denies rheumatic fever, and denies sexually transmitted diseases. ?Musculoskeletal: ?The patient denies back pain/injury, denies back problems, denies sciatica, NOTES knee/foot trouble, NOTES arthritis, or denies gout. ? Patient notes no changes to her review of systems ? PHYSICAL EXAMINATION: ? General: ?The patient is 53 year old female, well nourished, well hydrated in no acute distress. ?The patient is oriented to time, place, and person. ? VITALS:?Blood pressure 112/78, pulse 70, temperature 37.3 ?C (99.1 ?F), temperature source Temporal, resp. rate 16, weight 64 kg (141 lb), SpO2 98 %.?Body mass index is 27.54 kg/m?.? ? HEENT: ?Normal cephalic, ataumatic, pupils are equally round, sclera are anicteric, mucous membranes are moist, oropharynx is clear. ?Neck has no masses, asymmetry or lymphadenopathy. ?Thyroid is unremarkable. ? Respiratory: ?Clear to auscultation and percussion. ?Normal respiratory excursion and pattern. ? Cardiac: ?Examination is regular rate and rhythm. ? Abdominal exam: ?Soft, nontender, ?with no palpable masses. ?No hepatosplenomegaly. ?No palpable hernias. ? Rectal exam: ?exam deferred Extremities: ?no clubbing, cyanosis or edema. ?No adenopathy. ? Breast: ?Visual inspection reveals no retractions, nipple inversion, or skin changes. ?Palpation of the right breast reveals no dominant or suspicious masses, but multiple benign-feeling nodules. ?Palpation of the left breast reveals resolution of the?bruising?but still the?large hematoma at the 9:00 position of left breast.??There are no signs of erythema or suggestions of infection in the area.???Axillary exam demonstrates no suspicious masses in either the left or right axilla. ?There is no nipple discharge expressed from either the left or right breast. ? LABORATORY VALUES: As Noted ? RADIOLOGIC STUDIES: ?As Noted ? Assessment ? IMPRESSION: BREAST CANCER - ?- POST RIGHT ULTRASOUND GUIDED DCIS WITH MICROINVASION AND LEFT STEREOTACTIC GUIDED CORE BIOPSY - DCIS ? ? PLAN: ??I plan to perform a BILATERAL mastectomy with RIGHT sentinel lymph node biopsy with possible axillary dissection.. ?The planned surgical procedure was discussed extensively with the patient. ?The risks, benefits, anticipated outcomes and possible complications and alternatives were discussed. ?My staff has also explained the procedure in understandable terms and the patient was given the option to take printed material concerning the planned procedure. ?The patient had the opportunity to ask questions concerning the planned procedure. ?The patient freely consents to the planned procedure. ?? ? Patient is currently smoking one half pack per cigarettes per week. ?I discussed with her she'll need to quit smoking 2 weeks prior to surgery. ?We discussed the increased risk of wound complications and infection and necrosis if she continues to smoke. ?Discussed with the patient and she is not quit smoking for 2 weeks prior to surgery we will postpone surgery until that has occurred. ? Anticipated Surgical Procedure/ CPT Code: BILATERAL?MASTECTOMY WITH RIGHT SENTINEL LYMPH NODE BIOPSY, radiotracer identification - [id number], [id number], [id number] ? Anticipated Anesthetic: General ? Patient weight:??Blood pressure 112/78, pulse 70, temperature 37.3 ?C (99.1 ?F), temperature source Temporal, resp. rate 16, weight 64 kg (141 lb), SpO2 98 %.?BMI: ?Body mass index is 27.54 kg/m?. ? 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 SCDs needed - Yes ? Air Conditioning Unit Tester Needed - Yes ?? ? Diagnoses:?(D05.12) Breast neoplasm, Tis (DCIS), left ?(primary encounter diagn osis) (D05.11) Ductal carcinoma in situ (DCIS) of right breast with microinvasive component (R92.8) Abnormal finding on breast imaging ? Return to Clinic: The patient is instructed to follow-up with me 1 week post operatively. ? Hipolito Stahl MD
[2019-02-21] VITALS (10 sets, daily range): BP systolic 108–169; BP diastolic 47–83; PULSE 55–89; RESP 16–18; TEMP 35.9–36.7; O2SAT 95–100; BMI 27.4; BMI 27.6
--- NOTE | 2019-02-21 | IMM_PTH ---
PATIENT: DEREJE VIDAL LOC: [facility] U#:[id number] AGE/SX: 53/F ROOM: [facility]306 RE02/21/[address]: Dr. Hipolito Stahl MD : 1965 BED: 1 DIS: 02/22/2019 SPEC #: [id number] RECD: 02/25/19 14:00 STATUS: RAFI REQ #: [id number] VERONA: 02/21/19 00:[address]: Hipolito Stahl DEPT: IMMUNOHISTOCHEMISTRY RECD BY: Noreen Washington ENTERED: 02/25/19 14:02 SP TYPE: IMMUNO OTHR DR: Dr. Garret Mcdermott DO Tissues: A - Axillary lymph node, NOS B - Right breast, NOS Procedures: E-CAD (initial) CK7 (add) Pankeratin (initial) P40 (add) PHYSICIAN & INSTITUTION [place] [id number] SPECIMEN INFORMATION: Tissue Source: A - Right axillary sentinel lymph node, biopsy, B - Right breast, mastectomy Clinical Info: Breast neoplasm, DCIS Specimen Number: [id number] A & B6 CPT code: 98443 x2, 77930 x3 METHODOLOGY: Deparaffinized sections of prefer/formalin-fixed tissue or PAP/DQ stained slides are incubated with monoclonal/polyclonal antibodies/oligonucleotide probes. Localization is made via biotin free immunoperoxidase method. Appropriate controls are performed and reacted as expected. Results on target cell population are indicated in the following table: RESULTS: ANTIBODY / CLONE RESULT Block A AE1-3 (AE1/AE3/PCK26) negative CK7 (OV-TL12/30) negative Block B6 E-Cad (ECH-6) negative CK7 (OV-TL12/30) positive P40 (BC28) positive These tests were developed and their performance characteristics determined by [facility]. They may not have been cleared or approved by the U.S. Food and Drug Administration. The FDA has determined that such clearance or approval is not necessary. INTERPRETATION: A. Right axillary sentinel lymph node, biopsy: One of one lymph node negative for carcinoma. B. Right breast, mastectomy: Consistent with focal atypical lobular hyperplasia. AM:anyan 02/25/19
--- NOTE | 2019-02-21 | AXNB_PTH ---
PATIENT: DEREJE VIDAL LOC: [facility] U#:[id number] AGE/SX: 53/F ROOM: DE306 RE02/21/[address]: Dr. Hipolito Stahl MD : 1965 BED: 1 DIS: 02/22/2019 SPEC #: [id number] RECD: 02/21/19 11:05 STATUS: RAFI REMoses #: [id number] VERONA: 02/21/19 00:[address]: Hipolito Stahl DEPT: SURGICAL PATHOLOGY RECD BY: Noreen Washington ENTERED: 02/21/19 11:49 SP TYPE: AX NODE BX OTHR DR: Dr. Garret Mcdermott DO Tissues: A - Axillary lymph node, NOS B - Right breast, NOS C - Left breast, NOS Procedures: Frozen Section (charge) Surgery Specimen Level V Surgery Specimen Level HEADER OPERATION: Bilateral mastectomy, right sentinel lymph node biopsy PRE-OP DIAGNOSIS: Breast neoplasm; DCIS of right breast TISSUE SUBMITTED: A - Right sentinel lymph node, frozen section, B - Right breast, C - Left breast FROZEN SECTION DIAGNOSIS A. Right axillary sentinel lymph node, biopsy: One out of one lymph node negative for carcinoma. AM:nayan 02/21/19 MICROSCOPIC DIAGNOSIS A. Right axillary sentinel lymph node, biopsy: One out of one lymph node negative for carcinoma. B. Right breast, mastectomy: Ductal carcinoma in situ. See cancer checklist below. C. Left breast, mastectomy: Ductal carcinoma in situ. See cancer checklist below. AM:nayan 02/25/19 COMMENT DUCTAL CARCINOMA IN SITU SUMMARY: (Specimen B) Specimen - total mastectomy Procedure - total mastectomy Lymph node sampling - see specimen A Specimen integrity - single intact specimen Specimen size - 21.5 x 16 x 5 cm Specimen laterality - right breast Size (extent) of DCIS - 4 x 2 x 2 millimeters Histologic type - ductal carcinoma in situ Architectural pattern - solid Nuclear grade - Grade 2 (intermediate) Necrosis - focally present Margins - uninvolved by carcinoma. Distance from closest (anterior) margin - 1.5 cm Additional Pathologic Findings - usual intraductal hyperplasia and focal atypical lobular hyperplasia. Microcalcifications - present in non-neoplastic tissue. Pathologic Staging: pTis(DCIS) N0(sn) Mx DUCTAL CARCINOMA IN SITU SUMMARY: (Specimen C) Specimen - complete breast Procedure -mastectomy Lymph node sampling - no lymph node present Specimen integrity - single intact specimen Specimen size - 19 x 18 x 5 cm Specimen laterality - left breast Size (extent) of DCIS - 2 x 1 x 1 millimeters Histologic type - ductal carcinoma in situ Architectural pattern - cribriform Nuclear grade - Grade 3 (high grade) Necrosis - focally present Margins - uninvolved by carcinoma. Distance from closest (inferior) margin - 1.8 cm Additional Pathologic Findings - usual intraductal hyperplasia and focal atypical lobular hyperplasia. Microcalcifications - present in non-neoplastic tissue. Ancillary Studies from previous specimen ([id number] / [id number]): ER - >95%, strong intensity RI - 25%, weak intensity Her2 rafa (IHC) - 2+ (equivocal) Her2 by FISH - not performed. Pathologic Staging: pTis(DCIS) Nx Mx The above summary is in compliance with [employer] ([employer]) Cancer Protocols Checklist and [place] [employer] on Cancer (AJCC), Staging Manual, 8th Ed. Reference is made to the patient's left breast, stereotactic core biopsy from 01/18/19 ([id number]) in which ductal carcinoma in situ with high nuclear grade was identified. Case has been reviewed in consultation with Dr. Manrique who concurs with the above diagnosis. IDC:[id number] MICROSCOPIC DESCRIPTION Slides are reviewed. GROSS DESCRIPTION A - Received fresh for frozen section consultation labeled with the patient's name is a specimen designated right axillary sentinel lymph node. The specimen consists of an irregular fragment of wheeler-yellow fibrofatty tissue measuring 3.5 x 3.5 x 1 cm. Dissection reveals one single ovoid nodule measuring 1 cm in greatest dimension and an irregular fragment of pinkish-wheeler tissue measuring 1.5 cm in greatest dimension. Both of these fragments are submitted in their entirety for frozen section consultation in one block. / AM: 02/22/19 B - Received in fixative is one container labeled with the patient's name and designated right breast. The specimen consists of a mastectomy measuring 21.5 x 16 x 5 cm and containing an ellipse with nipple and areola. The skin fragment measures 17 x 5 x 9 cm. No skin lesions are identified. The specimen is differentially inked as follows: superior - blue, inferior - green and posterior - black. Serial sections of the breast reveal mostly yellow fatty cut surfaces interrupted occasionally by white fibrous streaks. No distinct mass lesion is identified. Wrap Checker sections are submitted as follows: 1 - nipple and areola, 2 - perpendicular superior, inferior and posterior margins, 3 - perpendicular medial margin, 4??perpendicular lateral margin, 5-12 - wire rope sales representative sections of breast parenchyma. Note, sections are submitted after additional fixation. / AM: 02/22/19 C - Received in fixative is one container labeled with the patient's name and designated left breast. The specimen consists of a mastectomy measuring 19 x 18 x 5 cm and weighing 675 gm. Also present free in the container is an irregular fragment of yellow fatty tissue measuring 12 x 5 x 4 cm. The anterior surface of the breast contains skin and unremarkable nipple and areola. The skin fragment measures 17 x 8 cm. The specimen is differentially inked as follows: superior - blue, inferior - green and posterior - black. Serial sections reveal a blood-filled biopsy cavity in the left lateral portion of the breast. The biopsy cavity measures 5 x 4 x 3 cm. The biopsy cavity is located 1.8 cm from its closest (inferior) margin of excision. The remainder of the uninvolved breast has mostly a yellow cut surface with focal dense white fibrous streaks. No mass lesion is identified. Wrap Checker sections are submitted in 12 cassettes as follows: 1 - nipple and areola, 2 - perpendicular superior, inferior and posterior margins, 3 - perpendicular medial margin, 4??perpendicular lateral margin, 5-8 - biopsy cavity and tissue adjacent to biopsy cavity, 9-12 - wire rope sales representative sections of uninvolved breast parenchyma including fragment free in container. Note, sections are submitted after additional fixation. / AM: 02/22/19 TC:0 CPT:43918, 57087 x2, 14253
--- NOTE | 2019-02-21 07:49 | NM_ITS ---
PROCEDURE: NUCLEAR MEDICINE Injection Nolan Node - BILATERAL breast(s). REASON FOR EXAM: Female, 53 years old. History of bilateral breast cancer. TECHNIQUE: Nolan node localization using radionuclide methods of the BILATERAL breast(s) was performed following subcutaneous administration of 1.1 mCi of of sulfur colloid Tc-99m in each breast. FINDINGS: 1.1 mCi of technetium labeled sulfur colloid was injected subcutaneously for sentinel node imaging of both breasts. NM/Lymph Node Injection Only IMPRESSION: Subcutaneous injection of 1.1 mCi of technetium labeled sulfur colloid in each breast for sentinel node imaging. Electronically Signed: Manfred Gomez, at 8:50 EDT , Service support ,
[2019-02-21] MEDS: Cefazolin 2 GM in 0.9% Normal Saline 100 ML IV (10:05)
--- NOTE | 2019-02-21 12:45 | PCM.OPRPT ---
Report of Operation Date of Procedure: 02/21/19 Pre-Operative Diagnosis: right DCIS with microinvasion, left DCIS Post-Operative Diagnosis: right DCIS with microinvasion, left DCIS, negative right SLNBx Surgery/Procedure Performed:: Right mastectomy with SLNBx for radiotracer and lymphazurin Blue, left simple mastectomy creative services writer: Jean Carlos Briseno Anesthesiologist: Vin Barbosa - ASA2 Specimen's removed: right SLNBx, right breast, left breast Drains: TREVON x 2 right, TREVON x 1 left Estimated Blood Loss (mL): 50 Fluids Replaced: 1500 Description of Procedure: The patient had previously undergone injection of radiotracer in the radiology department. The patient?s surgical site was marked in the holding area and the patient concurred that this was the planned operative site. The patient was then brought to the operative suite. Sign was performed verifying patient, site, position, SCIP antibiotic prophylaxis-2 g of Ancef and DVT prophylaxis with SCDs. Following an LMA anesthesia, 5 cc of a 50-50 mixture of lymphazurin blue and normal saline was injected into sappey's plexus of the right breast. The breast was then massaged. Evaluation of the axilla with the neoprobe demonstrated an area of activity in the low axilla just lateral to the pectoralis muscle. This site was marked. The patient?s right and left breasts, axilla right arm and neck were then prepped and draped in the usual fashion. Timeout was performed verifying patient, site, position. The planned margin of excision for the mastectomy flaps were marked on the skin and incisions were made starting in the axillary region . Dissection was carried superior laterally down to the pectoralis muscle and dissection extended towards the axilla. A blue lymphatic duct was identified and tracked back to the sentinel lymph node which turned nicely blue. This node was then dissected free from the surrounding structures. After was removed, it was evaluated with the neoprobe and contained approximately 280 counts. The neoprobe was then used to assess the axilla through the incision. No additional lymph nodes were palpated. There was an area running along the lymphatic duct which had approximately 15 counts. Attention was then turned to the mastectomy. Superior and inferior flaps were completed and raised. The breast tissue was taken down to the pectoralis fascia. The inferior portion of breast was then removed from the intercostal musculature and dissection carried superior laterally dividing the superficial tissues leading up to the axillary dissection . The specimen was sent whole . 2 Pancho-Beckett drains were placed in the medial along the skin flap the lateral in the axilla and secured with 3-0 nylon suture. Skin flaps were approximated interrupted 3-0 Vicryls. Skin was closed with royer. the left breast was now redraped. Superior and inferior flaps were completed and raised. The breast tissue was taken down to the pectoralis fascia. The inferior portion of breast was then removed from the intercostal musculature and dissection carried superior laterally dividing the superficial tissues leading up to the axillary dissection . The specimen was sent whole . 1 Pancho-Beckett drain was placed in the medial inferior margin along the skin flap and secured with 3-0 nylon suture. Skin flaps were approximated interrupted 3-0 Vicryls. Skin was closed with royer. Drain dressings and incisional dressings were placed. All sponge and instrument counts were correct. The patient was extubated and brought to recovery room in stable condition.
[2019-02-21] MEDS: Losartan Potassium 25 MG Tablet PO (16:40)
[2019-02-21] MEDS: oxyCODONE 5 MG Tablet PO (16:49)
[2019-02-21] MEDS: Naproxen 500 MG Tablet PO (19:57)
[2019-02-21] MEDS: buPROPion (SR) 150 MG Tablet.SA PO (21:01)
[2019-02-22 00:16] VITALS: BP 100/49; PULSE 55; RESP 16; TEMP 36.4; O2SAT 99
[2019-02-22] MEDS: oxyCODONE 5 MG Tablet PO ×2 (00:18→06:24)
[2019-02-22] MEDS: 0.9% NaCl Peripheral Flush Adult/Peds IV (00:19)
[2019-02-22 04:15] VITALS: BP 87/45; PULSE 54; RESP 16; TEMP 36.8; O2SAT 96
[2019-02-22] MEDS: cycloBENZAPRine HCl 10 MG Tablet 5 MG PO (04:20)
[2019-02-22 05:51] VITALS: BP 92/45; PULSE 53; RESP 14; TEMP 36.4; O2SAT 100
--- NOTE | 2019-02-22 06:19 | PCM.DC.BS ---
Discharge Diet: No Restrictions Discharge Activity: May Not Drive - for 2-3 days or while taking narcotic pain meds. May shower in (days): 1 Lifting Restrictions: 10 pounds for 1 week. Call your doctor if your incision/area has: Continuous Slow Oozing, Sudden Increased Bleeding Call your doctor if you observe: Fever of 101 or Higher Suture Line Care: Avoid Pulling/Pushing, Avoid Pinching/Bending Remove Dressing in (days):: 1 - Remove bulky dressing tomorrow. May leave any opsite dressing for 3-4 days. Keep dressing in place until your follow-up appointment. Additional Dressing/Incision Instructions:: Remove bulky dressing tomorrow. May leave any opsite dressing for 3-4 days. Keep dressing in place until your follow-up appointment. Allergies/Adverse Reactions: Allergies latex Allergy (Intermediate, Verified 02/21/19 07:28) Hives Medications to take at Discharge Cholecalciferol (VIT D3) [Vitamin D3] 2,000 unit PO DAILY 11/30/15 Sertraline HCl [Zoloft] 100 mg PO DAILY 11/30/15 cycloBENZAPRine HCl [Flexeril] 5 mg PO TID PRN PRN 11/30/15 Losartan Potassium 25 mg PO DAILY 05/11/17 Naproxen [Naprosyn] 500 mg PO BID PRN PRN 05/11/17 Sertraline HCl [Zoloft] 50 mg PO DAILY 05/11/17 buPROPion SR [Wellbutrin SR (150mg tablets)] 150 mg PO BID 05/11/17 Tolterodine Tartrate [Detrol LA] 4 mg PO DAILY 02/21/19 Oxycodone [Oxyir] 5 - 10 mg PO Q4H PRN PRN 5 Days #16 tab 02/22/19 The following prescriptions were given: Oxycodone [Oxyir] 5 - 10 mg PO Q4H PRN PRN 5 Days #16 tab PRN Reason: Pain Prescription Printed Orders to be completed after discharge: 12 Lead EKG [[facility]] Time Frame: 02/15/19, Facility: [facility], Location: Cardiovascular Services Primary Care Physician: Garret Mcdermott DO [Primary Care Provider] - Please Follow Up With: Hipolito Stahl MD When: Thusday
[2019-02-22 09:20] VITALS: BP 92/58; PULSE 58; RESP 18; TEMP 37.1; O2SAT 100
--- NOTE | 2019-02-22 19:31 | DS.PCM_ITS ---
Discharge Date and Diagnosis Date of Admission: 02/21/19 Date of Discharge: 02/22/19 - Primary Discharge Diagnosis right ductal carcinoma in situ with microinvasion, left ductal carcinoma in situ Hospital Course and Treatment Consultations 02/21/19 12:47 Consult: Onc/Wound/slitting and shipping supervisor Routine Comment: Operations: None - Negative cardiac stress test, - - . Bilateral mastectomy with right sentinel lymph node biopsy Summary of Care Provided: The patient is a 53 year old F with a history of right ductal carcinoma in situ with microinvasion and left ductal carcinoma in situ for bilateral mastectomy with right sentinel lymph node biopsy. Patient underwent the surgical intervention yesterday and was doing well ready for discharge on postoperative day 1. - Physical Exam General: Alert, Oriented x3, Cooperative Lungs: Clear to auscultation, Normal air movement Cardiovascular: Regular rate, No murmurs Abdomen: Soft, Non Tender Skin: - - dressings in place without signs of bloody drainage, Pancho-Beckett drains with serosanguineous drainage. Vital Signs Temp Pulse Resp BP Pulse Ox 98.7 F 58 L 18 92/58 L 100 02/22/19 09:20 02/22/19 09:20 02/22/19 09:20 02/22/19 09:20 02/22/19 09:20 Oxygen Flow Rate (L/min) 2 Oxygen Delivery Method Room Air Weight: 63.7 kg Body Mass Index (BMI) 27.6 Intake and Output for Last 24 Hours 02/20/19 02/21/19 02/22/19 23:59 23:59 23:59 Intake Total 1700 / 2600 1140 / 1140 Output Total 532 / 1202 1330 / 1330 Balance 1168 / 1398 -190 / -190 Discharge Diet: No Restrictions Discharge Activity: May Not Drive - for 2-3 days or while taking narcotic pain meds. May shower in (days): 1 Call your doctor if your incision/area has: Continuous Slow Oozing, Sudden Increased Bleeding Call your doctor if you observe: Fever of 101 or Higher Suture Line Care: Avoid Pulling/Pushing, Avoid Pinching/Bending Remove Dressing in (days):: 1 - Remove bulky dressing tomorrow. May leave any opsite dressing for 3-4 days. Keep dressing in place until your follow-up appointment. Additional Dressing/Incision Instructions:: Remove bulky dressing tomorrow. May leave any opsite dressing for 3-4 days. Keep dressing in place until your follow-up appointment. Home Medications: Medications to take at Discharge RX: Cholecalciferol (VIT D3) [Vitamin D3] 2,000 unit PO DAILY 11/30/15 RX: Sertraline HCl [Zoloft] 100 mg PO DAILY 11/30/15 RX: cycloBENZAPRine HCl [Flexeril] 5 mg PO TID PRN PRN 11/30/15 RX: Losartan Potassium 25 mg PO DAILY 05/11/17 RX: Naproxen [Naprosyn] 500 mg PO BID PRN PRN 05/11/17 RX: Sertraline HCl [Zoloft] 50 mg PO DAILY 05/11/17 RX: buPROPion SR [Wellbutrin SR (150mg tablets)] 150 mg PO BID 05/11/17 RX: Tolterodine Tartrate [Detrol LA] 4 mg PO DAILY 02/21/19 RX: Oxycodone [Oxyir] 5 - 10 mg PO Q4H PRN PRN 5 Days #16 tab 02/22/19 Following Prescrptions Were Given to Patient: RX: Oxycodone [Oxyir] 5 - 10 mg PO Q4H PRN PRN 5 Days #16 tab PRN Reason: Pain Prescription Printed Other Amb Orders: 12 Lead EKG [[facility]] Time Frame: 02/15/19, Facility: [facility], Location: Cardiovascular Services Primary Care Physician: Garret Mcdermott DO [Primary Care Provider] - Please Follow Up With: Hipolito Stahl MD When: Thusday Medical Necessity - Tobacco Use Smoking Status: Former smoker Tobacco Use: Cigarettes Meaningful Use Info Meaningful Use Diagnoses (Choose all that apply): None applicable
== END 2019-02-22 09:36 | disposition home or self-care (01) ==
LOC: SDC 02-22 10:18
PROVIDERS: Admitting Provider Surgery; Family Provider Student in an Organized Health Care Education/Training Program; PCP Student in an Organized Health Care Education/Training Program; Referring Provider Surgery; Visit Provider Surgery
PROC: (CPT 19307; principal; 2019-02-21 09:15)
DX: D05.12 Intraductal carcinoma in situ of left breast (principal); D05.11 Intraductal carcinoma in situ of right breast; F41.9 Anxiety disorder, unspecified; E55.9 Vitamin D deficiency, unspecified; E78.5 Hyperlipidemia, unspecified; I10 Essential (primary) hypertension; M50.80 Other cervical disc disorders, unspecified cervical region; Z79.899 Other long term (current) drug therapy; F17.210 Nicotine dependence, cigarettes, uncomplicated
CPT/HCPCS: 19303; 38525; 36415; 38792; 80048; 85027; 88305; 88307; 88309; 88331; 88341; 88342; 93005; 99218; A9541; J7120; A4216; G0378; G0379; J2405; J3490; Q9968

== ENCOUNTER 2019-08-10 20:51 | Emergency (ER) | payer OTHER, SELFPAY ==
[2019-02-21 15:04] VITALS: BMI 27.6
[2019-08-10 20:52] VITALS: BP 140/66; PULSE 86; RESP 18; TEMP 36.8; O2SAT 99; BMI 24.9
[2019-08-10] MEDS: 0.9% Normal Saline 1,000 ML 1000 ML IV (22:42)
[2019-08-10] MEDS: Morphine 4 MG/ML Syringe IV ×2 (22:42→23:46)
[2019-08-10] MEDS: Ondansetron 4 MG/2 ML Vial IV (22:42)
[2019-08-10 22:44] LABS: Absolute Lymphocyte Count 2.73 X10^3/uL (0.83-4.51); Absolute Neutrophil Count 12.4 X10^3/uL (2.0-7.7); Basophil# 0.04 X10^3/uL; Basophil% 0.2 % (0-1); Eosinophil# 0.11 X10^3/uL; Eosinophils% 0.7 % (0-5); Hematocrit 43.5 % (37-47); Hemoglobin 13.9 g/dL (12.0-15.0); Lymphocyte # 2.73 X10^3/ul (4.0); Lymphocyte % 16.9 % (19-41); Mean Corpuscular Hgb 28.8 pg (27.0-32.0); Mean Corpuscular Volume 90.2 fL (81-99); Mean Platelet Vol. 9.6 fl (6.2-12.0); Monocyte# 0.75 X10^3/uL; Monocyte% 4.7 % (0-10); NRBC Flagged by Analyzer 0 % (0-5); Neutrophil # 12.43 X10^3/uL (2.7-7.7); Neutrophil % 77.1 % (47-70); Platelet Count 393 K/mm3 (150-450); RBC Distribution Width CV 12.5 % (11.6-14.6); RBC Distribution Width SD 41.3 fl (35.1-43.9); Red Blood Count 4.82 M/mm3 (4.2-5.4); White Blood Count 16.1 K/mm3 (4.4-11.0)
[2019-08-10 23:00] LABS: AST(SGOT) 12 U/L (15-37); Alanine Aminotransfer ALT/SGPT 19 U/L (13-56); Alkaline Phosphatase 115 U/L (45-117); Anion Gap 3 (5-15); BUN 10 mg/dL (7-18); BUN/Creat Ratio 13.4 RATIO (10-20); Calcium,Total 9.4 mg/dL (8.5-10.1); Chloride 104 mmol/L (98-107); Creatinine, Serum 0.74 mg/dL (0.55-1.02); EST Glomerular Filtration Rate 86 mL/min (>60); Est Glom Filt Rate - Afr Amer 104 mL/min (>60); Estimated Creatinine Clearance 60.97 ml/min; Globulin 4.1 g/dL (2.2-4.2); Glucose 91 mg/dL (74-106); Potassium 3.6 mmol/L (3.5-5.1); Protein, Total 8.1 g/dL (6.4-8.2); Sodium Level 138 mmol/L (136-145)
[2019-08-10 23:08] LABS: Lactic Acid 0.8 mmol/L (0.4-1.9)
--- NOTE | 2019-08-10 23:23 | ED.DCSUM_ITS ---
History of Present Illness Chief Complaint: Abd Pain Detail of Chief Complaint: Mid abdominal pain with nausea, vomiting and diarrhea. Informant: Patient Onset: Yesterday Context: Sudden Onset Timing: Continuous - Crampy abdominal pain Quality: Crampy Location: Mid abdomen radiating outward Current Severity: Mild Maximum Severity: Severe Worsened by: Vomiting diarrhea Relieved by: Nothing Associated Symptoms: Mucus and slimy diarrhea Narrative: She is a 54-year-old woman. Triage document she has history of Crohn's disease. When asked if she has history of inflammatory bowel disorder/Crohn's/ulcerative colitis she responded no. She has not been on antibiotics recently. She has no ill contacts. She denies blood in her stool. She does report vomiting 2-3 times. She has had several loose watery stools with mucus noted. She does report thirst, dry mouth and lightheadedness. She denies cardiac respiratory symptoms. She denies urologic symptoms. She denies myalgias, arthralgias or swelling of her joints. She denies rash. Patient was asked if she has a history of Crohn's disease. She states she has seen a natural gas technician. There is history of inflammation. Uncertain whether she has colitis versus Crohn's disease versus infectious colitis. She states she was told there was narrowing and limited ability to make diagnosis. Prior similar symptoms: Yes Recent Illness/Hospitalization: No - Past Medical History (1) Overactive bladder Status: Acute (2) Breast cancer Status: Acute Past Medical History - Allergies and Home Meds Allergies/Adverse Reactions: Allergies latex Allergy (Intermediate, Verified 08/10/19 20:54) Hives Primary Care Physician: Garret Mcdermott DO [Primary Care Provider] - Prior records reviewed: Yes Surgical History: appendectomy, cholecystectomy, hysterectomy, tonsillectomy, - - Bilateral mastectomy Lives: Alone Smoking Status: Current every day smoker Alcohol: Rare Drugs: None - Family History Maternal Family History: Reports: - - mother sides alzheimers Paternal Family History: Reports: No pertinent history Review of Systems General: Reports: Chills, Fever, Malaise, Subjective. Denies: Sweats, Weight loss ENT: Denies: Rhinorrhea, Sore throat Cardiovascular: Denies: Chest pain, Palpitations Gastrointestinal: Reports: Abdominal pain, Nausea, Vomiting, Diarrhea. Denies: Melena, Hematochezia Genitourinary: Denies: Dysuria, Hematuria, Frequency Musculoskeletal: Denies: Myalgias, Arthralgias, Neck pain, Back pain, Swelling, Extremity Pain, -, - Skin: Denies: Rash, Wounds Neurological: Denies: Headache, Weakness, Numbness Hematologic: Denies: Easy bruising, Easy bleeding Allergy: Denies: Uticaria, Swelling of the mouth, Swelling of the tongue Physical Exam Vital Signs/Narrative: Vital Signs Temp Pulse Resp BP Pulse Ox 08/10/19 20:52 98.3 F 86 18 140/66 H 99 Inital Vital Signs reviewed: Yes General: Well nourished, Well developed, Acute Distress Head: Normocephalic, Atraumatic Eyes: Perrl, EOMI. Negative for: Pale conjunctiva, Scleral icterus ENT: No rhinorrhea, TM's clear, Dry mucous membranes Neck: Supple, Nontender, No lymphadenopathy, No JVD Cardiovascular: Regular rate, Regular rhythm, No murmurs, Normal S1, Normal S2 Respiratory: No distress, CTA bilaterally, Chest nontender Abdomen: Soft, No masses, Tender, Guarding, Rebound tenderness, Hyperactive bowel sounds. Negative for: Nontender, Nondistended, Normal bowel sounds, Hypoactive bowel sounds, Hepatomegaly, Splenomegaly, Mass, Pulsatile mass, Ventral hernia Back: Nontender, Normal Inspection. Negative for: CVA tenderness Extremities: Nontender, No edema Skin: Normal color, No rash Neurological: Alert, Oriented x3, Cranial nerves II-XII grossly intact, Normal Strength, Normal Sensation Psychological: Normal affect Diagnostic/Tx/Re-eval 08/10/19 22:25 Abdomen/Pelvis WITH Contrast [CT] Stat Laboratory Results 08/10/19 08/10/19 08/10/19 22:35 22:35 22:35 WBC 16.1 H RBC 4.82 Hgb 13.9 Hct 43.5 MCV 90.2 MCH 28.8 MCHC 32.0 RDW Std Deviation 41.3 RDW Coeff of Felipa 12.5 Plt Count 393 MPV 9.6 Immature Gran % (Auto) 0.400 Neut % (Auto) 77.1 H Lymph % (Auto) 16.9 L Ector % (Auto) 4.7 Eos % (Auto) 0.7 Baso % (Auto) 0.2 Absolute Neuts (auto) 12.4 H Absolute Lymphs (auto) 2.73 Nucleated RBC % 0 Sodium 138 Potassium 3.6 Chloride 104 Carbon Dioxide 31.0 Anion Gap 3 L BUN 10 Creatinine 0.74 Estim Creat Clear Calc 60.97 Est GFR (MDRD) Af Amer 104 Est GFR (MDRD) Non-Af 86 BUN/Creatinine Ratio 13.4 Glucose 91 Lactic Acid 0.8 Calcium 9.4 Total Bilirubin 0.30 AST 12 L ALT 19 Alkaline Phosphatase 115 Total Protein 8.1 Albumin 4.0 Globulin 4.1 Albumin/Globulin Ratio 1.0 White count is elevated, 16.1 with shift. There is no bandemia. Comprehensive metabolic panel is unremarkable. Lactate is normal. CT of the abdomen and pelvis with p.o. and IV contrast is pending. Case will be turned over to night physician Dr. Baldo Murillo. - Medical Decision Making Patient was medicated with Zofran and morphine for her nausea and abdominal pain. Because she has peritoneal findings CT of the abdomen with p.o. and IV contrast was ordered. Appropriate blood work was ordered. She does have an elevated white count of 16,000. She was reevaluated at 2325. She reports marked improvement after Zofran and morphine. Differential diagnosis includes gastroenteritis, inflammatory bowel disorder colitis ED Disposition - Plan for ED Patient: Referrals: Garret Mcdermott DO [Primary Care Provider] -
[2019-08-10 23:34] VITALS: BP 149/75; PULSE 63; RESP 16; O2SAT 100
--- NOTE | 2019-08-11 00:02 | CT_ITS ---
STUDY: CT ABDOMEN AND PELVIS WITH CONTRAST REASON FOR EXAM: Female, 54 years old. MID ABD PAIN/N/V/D/HX of Crohn''s and breast cancer. Bilat mastectomy,cholecystectomy,hysterectomy RADIATION DOSAGE (If Supplied By Facility): CTDIvol = ( 17.64 ) mGy, DLP = ( 603.74 ) mGycm TECHNIQUE: Transaxial images were obtained from the dome of the diaphragm to the symphysis pubis without oral contrast. Oral and amp; IV Gastrografin and amp; 100mL Isovue-370 was administered. Sagittal and coronal images were reconstructed. Individualized dose optimization techniques were used for this CT. COMPARISON: January 25, 2018 FINDINGS: The lung bases are clear. The liver is normal. No dilated intrahepatic biliary radicles. Previous cholecystectomy The spleen is normal. The pancreas is normal. The right adrenal gland is normal. A 1.7 cm left adrenal nodule The kidneys are normal with no masses, calculi or hydronephrosis The stomach is normal. There is no bowel distention, acute appendicitis or diverticulitis. There is mural thickening of the distal and terminal ileum with the so-called comb sign of active Crohn''s disease. No constricting lesions are seen in large bowel. The abdominal wall is intact with no hernias. There is no ascites or any free intraperitoneal air. No indication of epiploic appendagitis There is a retroaortic left renal vein and heavy calcification in the bob of the aorta. There are small mesenteric lymph nodes but no retrocrural or retroperitoneal adenopathy. The bones and joints are normal. The urinary bladder is normal.--Previous hysterectomy. There is no inguinal or pelvic adenopathy. There is no inguinal hernia. . CT/Abdomen/Pelvis WITH Contrast IMPRESSION: Active Crohn''s disease A 1.7 cm left adrenal nodule Electronically Signed: Bandar Jose MD at 0:47 EST Tel , Service support ,
[2019-08-11] MEDS: MethylPREDNISolone 125 MG/2 ML Vial IV (01:32)
--- NOTE | 2019-08-11 02:11 | ED.DEP ---
ED Disposition - Plan for ED Patient: Disposition: Home or Assisted Living Diagnosis: Exacerbation of Crohn's disease Instructions: Crohn's Disease Prescriptions: Prednisone 10 mg PO DAILY #63 tab Prescription Printed traMADol [Ultram] 50 mg PO Q4H PRN PRN 3 Days #20 tab PRN Reason: Pain Prescription Printed Referrals: Garret Mcdermott DO [Primary Care Provider] - Arnel Cho MD [CONSULTING PHYSICIAN] - As soon as possible
[2019-08-11 02:22] VITALS: BP 141/54; PULSE 63; RESP 16; O2SAT 96
== END 2019-08-11 02:23 | disposition home or self-care (01) ==
PROVIDERS: Emergency Provider Emergency Medicine; PCP Student in an Organized Health Care Education/Training Program
DX: K50.90 Crohn's disease, unspecified, without complications (principal); N32.81 Overactive bladder; Z85.3 Personal history of malignant neoplasm of breast; Z90.49 Acquired absence of other specified parts of digestive tract; F17.200 Nicotine dependence, unspecified, uncomplicated
CPT/HCPCS: 74177; 80053; 83605; 85025; 96361; 96374; 96375; 99283; J7030; Q9967; A4216; J2405

== ENCOUNTER 2019-10-11 12:49 | Observation (INO) | payer OTHER, SELFPAY ==
[2019-10-11 12:51] VITALS: BP 126/79; PULSE 108; RESP 18; TEMP 37.1; O2SAT 100; BMI 24.2
--- NOTE | 2019-10-11 13:10 | ED.DCSUM_ITS ---
History of Present Illness Chief Complaint: Abd Pain Narrative: Patient is a 54-year-old female who presents with a Crohn's flare. She has a history of Crohn's disease. 1 week ago she developed a burning diffuse abdominal pain and diarrhea. This became bloody later in the week. She also reports nausea and vomiting. No fevers. Her symptoms transiently seem to improve a couple of days ago but again returned last night. She otherwise denies recent illness such as sore throat congestion runny nose cough. She does have a history of cholecystectomy, section, tubal ligation, hysterectomy, lysis of adhesions. She has never had to have a bowel resection. She takes Pentasa. Past Medical History - Allergies and Home Meds Allergies/Adverse Reactions: Allergies latex Allergy (Intermediate, Verified 10/11/19 12:50) [facility] Primary Care Physician: Garret Mcdermott DO [Primary Care Provider] - Past Medical History: - - Crohn's disease Surgical History: appendectomy, cholecystectomy, hysterectomy, tonsillectomy, - - Bilateral mastectomy Smoking Status: Current every day smoker - Family History Maternal Family History: Reports: - - mother sides alzheimers Paternal Family History: Reports: No pertinent history Review of Systems All systems negative except as indicated General: Denies: Fever Eyes: Denies: Visual changes - bilaterally ENT: Denies: Bilateral ear pain Cardiovascular: Denies: Chest pain Respiratory: Denies: Dyspnea Gastrointestinal: Reports: Abdominal pain, Nausea, Vomiting, Diarrhea, Hematochezia Musculoskeletal: Denies: Myalgias, Arthralgias Skin: Denies: Rash Neurological: Denies: Headache Hematologic: Denies: Easy bruising Allergy: Denies: Uticaria Physical Exam Vital Signs/Narrative: Vital Signs Temp Pulse Resp BP Pulse Ox 10/11/19 12:51 98.8 F 108 H 18 126/79 H 100 Inital Vital Signs reviewed: Yes General: Well nourished, Well developed Head: Normocephalic Eyes: EOMI ENT: Moist mucous membranes Neck: Supple Cardiovascular: Regular rhythm, Tachycardia Respiratory: No distress, CTA bilaterally Abdomen: Soft, - - Patient has diffuse lower abdominal tenderness, no guarding, no rebound, nondistended Skin: Normal color Neurological: Alert Psychological: Normal affect Diagnostic/Tx/Re-eval 10/11/19 13:10 Abdomen/Pelvis WITH Contrast [CT] Stat Laboratory Results 10/11/19 10/11/19 13:25 13:25 WBC 25.2 H RBC 4.90 Hgb 14.1 Hct 42.7 MCV 87.1 MCH 28.8 MCHC 33.0 RDW Std Deviation 39.8 RDW Coeff of Felipa 12.5 Plt Count 317 MPV 9.7 Immature Gran % (Auto) 0.600 Neut % (Auto) 89.4 H Lymph % (Auto) 5.2 L [place] % (Auto) 3.3 Eos % (Auto) 1.3 Baso % (Auto) 0.2 Absolute Neuts (auto) 22.5 H Absolute Lymphs (auto) 1.32 Nucleated RBC % 0 Differential Comment COMMENT Sodium 135 L Potassium 2.6 L* Chloride 98 Carbon Dioxide 29.0 Anion Gap 8 BUN 19 H Creatinine 0.83 Estim Creat Clear Calc 54.36 Est GFR (MDRD) Af Amer 92 Est GFR (MDRD) Non-Af 76 BUN/Creatinine Ratio 23.0 H Glucose 98 Calcium 9.0 Total Bilirubin 0.20 AST 13 L ALT 15 Alkaline Phosphatase 82 Total Protein 6.9 Albumin 3.1 L Globulin 3.8 Albumin/Globulin Ratio 0.8 L Lipase 192 - Medical Decision Making Patient was symptomatically treated with IV fluids, morphine, Zofran. She is resting comfortably on reevaluation. Labs returned notable for white count of 25,000 and severe hypokalemia with a potassium of 2.6. EKG was obtained which shows normal sinus rhythm at a rate of 66. Normal intervals. Patient was treated with IV Cipro and Flagyl for Crohn's exacerbation. At the time of this dictation a CT of the abdomen and pelvis is pending. Patient is been signed out to the oncoming physician. If this does not show surgical complication I believe the patient can likely just be admitted with antibiotics and steroids. Final disposition per the oncoming physician pending CT. ED Disposition - Plan for ED Patient: Diagnosis: Exacerbation of Crohn's disease Referrals: Garret Mcdermott DO [Primary Care Provider] -
--- NOTE | 2019-10-11 13:10 | CT_ITS ---
STUDY: CT ABDOMEN AND PELVIS WITH CONTRAST REASON FOR EXAM: Female, 54 years old. GI BLEED, ABD PAIN, INCREASED WBC, BLOODY STOOL, HX CROHN''S RADIATION DOSAGE (If Supplied By Facility): CTDIvol = ( 10.74 ) mGy, DLP = ( 560.67 ) mGycm TECHNIQUE: Transaxial images were obtained from the dome of the diaphragm to the symphysis pubis with oral contrast. Oral and amp; IV Gastrografin and amp; 100 optiray 320 was administered. Sagittal and coronal images were reconstructed. Individualized dose optimization techniques were used for this CT. COMPARISON: Comparison is made with prior study dated August 11, 2019. FINDINGS: The visualized lung bases are unremarkable. The visualized portions of the heart are within normal limits. There is decreased attenuation of the liver consistent with steatosis. There are surgical clips in the gallbladder fossa consistent with a prior cholecystectomy. Normal spleen. Normal pancreas. Normal bilateral adrenal glands. Normal right kidney. Normal left kidney. There is evidence of a left retroaortic renal vein. Normal visualized stomach. There is diffuse thickening of the terminal ileum. Small lymph nodes are seen in the mesentery in the right lower quadrant is suggestive of mesenteric adenitis. There is fluid throughout the colon. There is evidence of a mural thickening of the colon more prominent in the transverse colon and descending colon. The appendix is visualized and appears normal. There is diffuse atherosclerotic calcification of the abdominal aorta as well as the visceral branches., without a demonstrated aneurysm. Normal inferior vena cava. Normal retroperitoneum. Normal urinary bladder. There is absence of the uterus consistent with a prior hysterectomy. Normal abdominal wall. Normal osseous structures. CT/Abdomen/Pelvis WITH Contrast IMPRESSION: Circumferential wall thickening of the terminal ileum as well as thickening of the colon as described. This is worse involvement of the transverse colon and descending colon. Recurrent Crohn''s disease should be ruled out. Small lymph nodes in the mesenteric fat within the right lower quadrant. Fatty infiltration of the liver. Electronically Signed: Manfred Gomez, at 15:25 EDT , Service support ,
[2019-10-11] MEDS: Morphine 4 MG/ML Syringe IV ×2 (13:22→16:13)
[2019-10-11] MEDS: Ondansetron 4 MG/2 ML Vial IV (13:22)
[2019-10-11] MEDS: 0.9% Normal Saline 1,000 ML 1000 ML IV (13:22)
[2019-10-11 13:32] LABS: Absolute Lymphocyte Count 1.32 X10^3/uL (0.83-4.51); Absolute Neutrophil Count 22.5 X10^3/uL (2.0-7.7); Basophil# 0.04 X10^3/uL; Basophil% 0.2 % (0-1); Eosinophil# 0.33 X10^3/uL; Eosinophils% 1.3 % (0-5); Hematocrit 42.7 % (37-47); Hemoglobin 14.1 g/dL (12.0-15.0); Lymphocyte # 1.32 X10^3/ul (4.0); Lymphocyte % 5.2 % (19-41); Mean Corpuscular Hgb 28.8 pg (27.0-32.0); Mean Corpuscular Volume 87.1 fL (81-99); Mean Platelet Vol. 9.7 fl (6.2-12.0); Monocyte# 0.82 X10^3/uL; Monocyte% 3.3 % (0-10); NRBC Flagged by Analyzer 0 % (0-5); Neutrophil # 22.52 X10^3/uL (2.7-7.7); Neutrophil % 89.4 % (47-70); POSITIVE DIFFERENTIAL YES; Platelet Count 317 K/mm3 (150-450); RBC Distribution Width CV 12.5 % (11.6-14.6); RBC Distribution Width SD 39.8 fl (35.1-43.9); White Blood Count 25.2 K/mm3 (4.4-11.0)
[2019-10-11 13:49] LABS: Differential Indicated SCAN CRITERIA MET
[2019-10-11 14:08] LABS: ALB/GLOB Ratio 0.8 RATIO (0.9-2.4); AST(SGOT) 13 U/L (15-37); Alanine Aminotransfer ALT/SGPT 15 U/L (13-56); Albumin, Serum 3.1 g/dL (3.2-5.0); Alkaline Phosphatase 82 U/L (45-117); Anion Gap 8 (5-15); BUN 19 mg/dL (7-18); Chloride 98 mmol/L (98-107); Creatinine, Serum 0.83 mg/dL (0.55-1.02); EST Glomerular Filtration Rate 76 mL/min (>60); Est Glom Filt Rate - Afr Amer 92 mL/min (>60); Estimated Creatinine Clearance 54.36 ml/min; Globulin 3.8 g/dL (2.2-4.2); Glucose 98 mg/dL (74-106); Lipase 192 U/L (73-393); Potassium 2.6 mmol/L (3.5-5.1); Protein, Total 6.9 g/dL (6.4-8.2); Sodium Level 135 mmol/L (136-145)
--- NOTE | 2019-10-11 14:09 | EKG12_ITS ---
Test Reason : ABD PAIN Blood Pressure : / mmHG Vent. Rate : 066 BPM Atrial Rate : 066 BPM P-R Int : 164 ms QRS Dur : 070 ms QT Int : 406 ms P-R-T Axes : 009 071 011 degrees QTc Int : 425 ms Normal sinus rhythm Normal ECG Confirmed by HANNAH HODGES, TRACEY ([id number]), editorial director RANDY MORRELL ([id number]) on 10/18/2019 1:58:05 PM Referred By: LUDWIN Confirmed By:JULIANN YOUNG MD
[2019-10-11] MEDS: Potassium Chloride 10mEq/100mL 10 MEQ/100 ML IV.SOLN. 100 MEQ IV BOLUS ×3 (14:49→17:03)
[2019-10-11] MEDS: metroNIDAZOLE 500 MG/100 ML BAG 100 MG IV ×2 (14:55→22:50)
[2019-10-11 15:15] VITALS: BP 117/62; PULSE 83; RESP 16; TEMP 37.3; O2SAT 100
[2019-10-11] MEDS: Ciprofloxacin 400 MG/200 ML BAG 200 MG IV ×2 (16:00→21:14)
--- NOTE | 2019-10-11 16:10 | PCM.HP.STD ---
<Laurie Barrios - Last Filed: 10/11/19 16:44> Problem List (1) Breast cancer Status: Resolved (2) Exacerbation of Crohn's disease Status: Acute (3) Overactive bladder Status: Chronic History of Present Illness Date of Admission: 10/11/19 Chief Complaint: Diarrhea, abdominal pain. The patient is a 54 year old F who presents emergency room due to diarrhea with nausea, vomiting and abdominal pain. Patient reports this began last Thursday. She was placed on prednisone taper by her GI [employer]. Patient reports over the past week her symptoms initially improved however significantly worsened yesterday. Patient states she has had a significant amount of bright red blood in stool. Patient was recently referred to Dr. Hoyt in [place] for further GI treatment and evaluation due to recurrent exacerbations. Patient states she has lost over 60 pounds in the past few years. She reports intermittent fever, chills. She has a past medical history of breast cancer status post bilateral mastectomy, overactive bladder, Crohn's disease. 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 Review of Systems Constitutional: Reports: Chills, Fever, Weight Change - Weight loss HEENT: Denies: Head Aches, Sinus Congestion, Sinus Drainage Cardiovascular: Denies: Chest Pain, Edema, Light Headedness, Palpitations, Syncope Respiratory: Denies: Cough, Shortness of breath at rest, Sputum production Gastrointestinal: Reports: Diarrhea, Nausea, Melena, Vomiting Genitourinary: Denies: Dysuria Musculoskeletal: Denies: Joint Pain, Joint Tenderness Skin: Denies: Rash, Wounds Neurological: Denies: Numbness, Tingling, Focal weakness Psychiatric: Denies: Anxiety, Depression, Homicidal Ideations, Suicidal Ideations Hematologic/ Lymphatic: Denies: Easy Bruising, Easy Bleeding VTE Information - Inpt Only VTE Present on Admission: No VTE Mechan Device Prophylaxis: None VTE Pharm Prophylaxis ordered?: Yes Patient Problems: Active and Suspected Problems Exacerbation of Crohn's disease (Acute) - Physical Exam Vitals/I&O's: Vital Signs Temp Pulse Resp BP Pulse Ox 99.1 F 83 16 117/62 100 10/11/19 15:15 10/11/19 15:15 10/11/19 15:15 10/11/19 15:15 10/11/19 15:15 Oxygen Delivery Method Room Air Weight: 124 lb Body Mass Index (BMI) 24.2 Intake and Output for Last 24 Hours 10/09/19 10/10/19 10/11/19 23:59 23:59 23:59 Intake Total 1200 / 1200 Balance 1200 / 1200 General: Alert, Oriented x3, Cooperative HEENT: Atraumatic, PERRLA, EOMI, Normocephalic Neck: Supple, No JVD, Negative Carotid Bruits Lungs: Clear to auscultation, Normal air movement Cardiovascular: Regular rate, Regular Rhythm, Normal S1, Normal S2, No murmurs Abdomen: Bowel Sounds Present, Soft, Non-Distended, Tender Extremities: No clubbing, No cyanosis, No edema, Capillary Refill Less than 3 Seconds Skin: No rashes, No breakdown Musculoskeletal: No Tenderness to Palpation of Joints or Extremities Neurological: Cranial nerves II-XII grossly intact, Neuro grossly intact Psych/Mental Status: Normal Affect, Appropriate Laboratory Results 10/11/19 13:25: WBC 25.2 H, RBC 4.90, Hgb 14.1, Hct 42.7, MCV 87.1, MCH 28.8, MCHC 33.0, RDW Std Deviation 39.8, RDW Coeff of Felipa 12.5, Plt Count 317, MPV 9.7, Immature Gran % (Auto) 0.600, Neut % (Auto) 89.4 H, Lymph % (Auto) 5.2 L, [place] % (Auto) 3.3, Eos % (Auto) 1.3, Baso % (Auto) 0.2, Absolute Neuts (auto) 22.5 H, Absolute Lymphs (auto) 1.32, Nucleated RBC % 0, Differential Comment COMMENT 10/11/19 13:25: Sodium 135 L, Potassium 2.6 L*, Chloride 98, Carbon Dioxide 29.0, Anion Gap 8, BUN 19 H, Creatinine 0.83, Estim Creat Clear Calc 54.36, Est GFR (MDRD) Af Amer 92, Est GFR (MDRD) Non-Af 76, BUN/Creatinine Ratio 23.0 H, Glucose 98, Calcium 9.0, Total Bilirubin 0.20, AST 13 L, ALT 15, Alkaline Phosphatase 82, Total Protein 6.9, Albumin 3.1 L, Globulin 3.8, Albumin/Globulin Ratio 0.8 L, Lipase 192 Current Medications Potassium Chloride () 10 meq in 100 mls @ 100 mls/hr IV BOLUS Q1H [facility] Stop: 10/11/19 18:14 Last Admin: 10/11/19 15:58 Dose: 100 mls/hr Documented by: Assessment/Plan All Active Problems Exacerbation of Crohn's disease (Acute) Breast cancer (Resolved) 1. Crohn's Flare-CT of abdomen pelvis shows circumferential wall thickening of the terminal ileum as well as thickening of the colon. Worse involvement of the transverse colon and descending colon. IV Cipro and IV Flagyl. IV fluids. N.p.o. PRN antiemetics. PRN pain regimen. 2. Hypokalemia-secondary to #1. Replace per protocol. Trend BMP. 3. Overactive bladder-continue home Detrol LA regimen. DVT prophylaxis-Lovenox subcu This patient was seen by MARCUS Sultana under the supervision of Dr. Smith. <Genevieve Smith - Last Filed: 10/11/19 17:22> History of Present Illness The patient is a 54 year old F [] Past Medical History Allergies latex Allergy (Intermediate, Verified 10/11/19 12:50) Hives - Physical Exam Vitals/I&O's: Vital Signs Temp Pulse Resp BP Pulse Ox 99.3 F H 73 16 101/52 L 100 10/11/19 16:16 10/11/19 16:16 10/11/19 16:16 10/11/19 16:16 10/11/19 16:16 Oxygen Delivery Method Room Air Weight: 56.245 kg Body Mass Index (BMI) 24.2 Intake and Output for Last 24 Hours 10/09/19 10/10/19 10/11/19 23:59 23:59 23:59 Intake Total 1300 / 1300 Balance 1300 / 1300 Laboratory Results 10/11/19 13:25: WBC 25.2 H, RBC 4.90, Hgb 14.1, Hct 42.7, MCV 87.1, MCH 28.8, MCHC 33.0, RDW Std Deviation 39.8, RDW Coeff of Felipa 12.5, Plt Count 317, MPV 9.7, Immature Gran % (Auto) 0.600, Neut % (Auto) 89.4 H, Lymph % (Auto) 5.2 L, Whitman % (Auto) 3.3, Eos % (Auto) 1.3, Baso % (Auto) 0.2, Absolute Neuts (auto) 22.5 H, Absolute Lymphs (auto) 1.32, Nucleated RBC % 0, Differential Comment COMMENT 10/11/19 13:25: Sodium 135 L, Potassium 2.6 L*, Chloride 98, Carbon Dioxide 29.0, Anion Gap 8, BUN 19 H, Creatinine 0.83, Estim Creat Clear Calc 54.36, Est GFR (MDRD) Af Amer 92, Est GFR (MDRD) Non-Af 76, BUN/Creatinine Ratio 23.0 H, Glucose 98, Calcium 9.0, Total Bilirubin 0.20, AST 13 L, ALT 15, Alkaline Phosphatase 82, Total Protein 6.9, Albumin 3.1 L, Globulin 3.8, Albumin/Globulin Ratio 0.8 L, Lipase 192 10/11/19 13:25: Magnesium Pending Current Medications Acetaminophen (Tylenol) 650 mg PO Q6H PRN PRN PRN Reason: Pain Score 1-10/Temp > 100.7 F Heparin Sodium (Porcine) (Heparin Na) 5,000 unit SC Q12 [facility] Potassium Chloride () 10 meq in 100 mls @ 100 mls/hr IV BOLUS Q1H [facility] Stop: 10/11/19 18:14 Last Admin: 10/11/19 17:03 Dose: 100 mls/hr Documented by: Sodium Chloride () 1,000 mls @ 100 mls/hr IV .Q10H [facility] Stop: 10/12/19 07:58 Ciprofloxacin (Cipro) 400 mg in 200 mls @ 200 mls/hr IV Q12 [facility] Metronidazole (Flagyl) 500 mg in 100 mls @ 100 mls/hr IV Q8 [facility] Methylprednisolone (Solu-Medrol) 40 mg IV Q8 [facility] Sodium Chloride () 10 - 40 ml IV UD PRN PRN Reason: SALINE FLUSH Assessment/Plan This patient was seen in conjunction with Laurie Barrios NP. I have independently interviewed and examined the patient and reviewed pertinent historical, laboratory, and other data. Please refer to her note for patient's presentation, findings, and recommendations. 54-year-old female with PMHx of Crohn's disease, diagnosed in August 2019, who comes in with 1 week history of abdominal discomfort, bloody mucoid diarrhea for last chills without fever. She denies any sick contacts, she has some nausea with vomiting. Physical Exam: Gen: Comfortable, not pale, not jaundiced, alert oriented x3 CVS:HS I +II, regular, no murmurs RESP: CTA GI: BS present and normal, generalised tenderness, no palpable organs EXT:No edema Labs reviewed: ASSESSMENT: 1. Acute Crohn's disease flare 2. Severe hypokalemia 3. Overactive bladder Meds reviewed Plan: Continue with potassium supplementation Check magnesium, Enteric panel IV fluids, IV steroids, IV Cipro and Flagyl Inpatient E&M: 16104 Init Hosp L2
--- NOTE | 2019-10-11 16:11 | NURSING ---
MED SURG PAINTSIL EXAC OF CROHN'S WITH GENERALIZED PERITONITIS
[2019-10-11 16:16] VITALS: BP 101/52; PULSE 73; RESP 16; TEMP 37.4; O2SAT 100
[2019-10-11 17:09] VITALS: BMI 24.2; BMI 24.3
[2019-10-11 17:43] LABS: Magnesium 2.1 mg/dL (1.6-2.6)
[2019-10-11] MEDS: 0.9% Normal Saline 1,000 ML 100 ML IV (17:50)
[2019-10-11 18:00] VITALS: BP 109/53; PULSE 76; RESP 16; TEMP 37.2; O2SAT 100
[2019-10-11] MEDS: Potassium Chloride 10mEq/100mL 10 MEQ/100 ML IV.SOLN. 80 MEQ IV BOLUS (18:34)
[2019-10-11 20:49] VITALS: BP 104/49; PULSE 65; RESP 16; TEMP 36.8; O2SAT 100
[2019-10-11] MEDS: Heparin Injection (Vial) 5,000 UNIT/ML VIAL 5000 UNIT SC (21:13)
[2019-10-11] MEDS: Ensure Clear 120 ML Liquid PO (21:14)
[2019-10-11 22:20] LABS: Anion Gap 8 (5-15); BUN 12 mg/dL (7-18); BUN/Creat Ratio 17.9 RATIO (10-20); Calcium,Total 8.3 mg/dL (8.5-10.1); Chloride 106 mmol/L (98-107); Creatinine, Serum 0.67 mg/dL (0.55-1.02); EST Glomerular Filtration Rate 96 mL/min (>60); Est Glom Filt Rate - Afr Amer 117 mL/min (>60); Estimated Creatinine Clearance 67.34 ml/min; Glucose 112 mg/dL (74-106); Potassium 3.9 mmol/L (3.5-5.1); Sodium Level 134 mmol/L (136-145)
[2019-10-12 03:12] VITALS: BP 105/53; PULSE 54; RESP 16; TEMP 36.4; O2SAT 97
[2019-10-12] MEDS: metroNIDAZOLE 500 MG/100 ML BAG 100 MG IV (05:52)
[2019-10-12] MEDS: 0.9% Normal Saline 1,000 ML 100 ML IV (05:52)
[2019-10-12 06:01] LABS: Basophil# 0.02 X10^3/uL; Basophil% 0.2 % (0-1); Eosinophil# 0.04 X10^3/uL; Eosinophils% 0.5 % (0-5); Hematocrit 34.2 % (37-47); Hemoglobin 11.3 g/dL (12.0-15.0); Lymphocyte % 5.7 % (19-41); Mean Corpuscular Volume 87.7 fL (81-99); Mean Platelet Vol. 9.8 fl (6.2-12.0); Monocyte# 0.24 X10^3/uL; Monocyte% 2.7 % (0-10); NRBC Flagged by Analyzer 0 % (0-5); Neutrophil # 7.99 X10^3/uL (2.7-7.7); Neutrophil % 90.3 % (47-70); POSITIVE DIFFERENTIAL YES; Platelet Count 244 K/mm3 (150-450); RBC Distribution Width CV 12.8 % (11.6-14.6); RBC Distribution Width SD 40.7 fl (35.1-43.9); White Blood Count 8.8 K/mm3 (4.4-11.0)
[2019-10-12 06:05] LABS: Differential Indicated SCAN CRITERIA MET
[2019-10-12 06:21] LABS: Differential Comment SCANNED; Reactive Lymphocyte RARE
[2019-10-12 06:24] LABS: ALB/GLOB Ratio 0.8 RATIO (0.9-2.4); AST(SGOT) 14 U/L (15-37); Alanine Aminotransfer ALT/SGPT 18 U/L (13-56); Albumin, Serum 2.4 g/dL (3.2-5.0); Alkaline Phosphatase 61 U/L (45-117); Anion Gap 6 (5-15); BUN 8 mg/dL (7-18); BUN/Creat Ratio 14.4 RATIO (10-20); Calcium,Total 7.9 mg/dL (8.5-10.1); Chloride 108 mmol/L (98-107); Creatinine, Serum 0.56 mg/dL (0.55-1.02); EST Glomerular Filtration Rate 120 mL/min (>60); Est Glom Filt Rate - Afr Amer 145 mL/min (>60); Estimated Creatinine Clearance 80.57 ml/min; Globulin 2.9 g/dL (2.2-4.2); Glucose 123 mg/dL (74-106); Potassium 3.9 mmol/L (3.5-5.1); Protein, Total 5.3 g/dL (6.4-8.2); Sodium Level 139 mmol/L (136-145)
[2019-10-12 08:26] VITALS: BP 103/43; PULSE 51; RESP 16; TEMP 36.4; O2SAT 98
[2019-10-12] MEDS: Ciprofloxacin 400 MG/200 ML BAG 200 MG IV (09:31)
[2019-10-12] MEDS: Ensure Clear 120 ML Liquid PO (09:32)
[2019-10-12] MEDS: Heparin Injection (Vial) 5,000 UNIT/ML VIAL 5000 UNIT SC (09:32)
--- NOTE | 2019-10-12 10:53 | DCINST_ITS ---
- Discharge Diagnoses Current Active Problems: Current Active and Chronic Problems Exacerbation of Crohn's disease (Acute) You will use the following diet at home:: Other - Light diet, advance as tolerated Discharge Activity: Return to Normal Activity Call your doctor if you observe: Fever of 101 or Higher, Shortness of breath, Dizziness, Fainting spells, Chest pain Allergies/Adverse Reactions: Allergies latex Allergy (Intermediate, Verified 10/11/19 12:50) Hives Medications to take at Discharge Mesalamine [Pentasa] 1,000 mg PO 4X/DAY 10/11/19 Tolterodine Tartrate [Detrol LA] 4 mg PO DAILY 10/11/19 Ciprofloxacin HCl 500 mg PO BID #14 tab 10/12/19 Ondansetron HCl [Zofran] 4 mg PO Q8H PRN PRN #20 tab 10/12/19 Prednisone See Taper PO DAILY #30 tab 10/12/19 metroNIDAZOLE [Flagyl] 500 mg PO Q8H #21 tab 10/12/19 The following prescriptions were given: Ciprofloxacin HCl 500 mg PO BID #14 tab Transmission Status: Pending to [id number] metroNIDAZOLE [Flagyl] 500 mg PO Q8H #21 tab Transmission Status: Pending to [facility] Prednisone See Taper PO DAILY #30 tab Transmission Status: Pending to [facility] Ondansetron HCl [Zofran] 4 mg PO Q8H PRN PRN #20 tab PRN Reason: Nausea Transmission Status: Pending to [facility] Primary Care Physician: Garret Mcdermott DO [Primary Care Provider] - Please follow up with your Primary Care Physician in: 1 Week Test Results: Test results from this visit will be discussed in further detail at your follow- up appointment, if applicable. Please Follow Up With: Gastroenterology When: As scheduled Proposed Discharge Date: 10/12/19
--- NOTE | 2019-10-12 10:54 | PCM.DC.SUM ---
<Laurie Barrios - Last Filed: 10/12/19 10:59> Discharge Date and Diagnosis Date of Admission: 10/11/19 Date of Discharge: 10/12/19 - Primary Discharge Diagnosis Active and Suspected Problems 1. Acute Crohn's Flare 2. Hypokalemia 3. Overactive bladder - Secondary Discharge Diagnosis Chronic Problems Overactive bladder (Chronic) Hospital Course and Treatment Imaging Results: Diagnostic Data Abdomen/Pelvis CT 10/11/19 13:10 IMPRESSION: Circumferential wall thickening of the terminal ileum as well as thickening of the colon as described. This is worse involvement of the transverse colon and descending colon. Recurrent Crohn''s disease should be ruled out. Small lymph nodes in the mesenteric fat within the right lower quadrant. Fatty infiltration of the liver. Electronically Signed: Manfred Patricia, at 15:25 EDT , Service support , Operations: None - Negative cardiac stress test Procedures: None Summary of Care Provided: The patient is a 54 year old F admitted 10/11/2019 due to diarrhea and abdominal pain. 1. Crohn's Flare-CT of abdomen pelvis shows circumferential wall thickening of the terminal ileum as well as thickening of the colon. Worse involvement of the transverse colon and descending colon. Patient improved much quicker than anticipated. Diarrhea significantly improved. Patient denies further abdominal pain. Stool for enteric bacteriology negative. Continue course of Flagyl and Cipro at discharge. Prednisone taper. Follow-up with primary care in 1 week. Follow-up with gastroenterology as scheduled. Patient recently referred to Dr. Hoyt in [place]. 2. Hypokalemia-secondary to #1. Resolved. 3. Overactive bladder-continue home Detrol LA regimen. General: Alert, Oriented x3, Cooperative HEENT: Atraumatic, PERRLA, EOMI, Normocephalic Neck: Supple, No JVD, Negative Carotid Bruits Lungs: Clear to auscultation, Normal air movement Cardiovascular: Regular rate, Regular Rhythm, Normal S1, Normal S2, No murmurs Abdomen: Bowel Sounds Present, Soft, Non-Distended, Tender Extremities: No clubbing, No cyanosis, No edema, Capillary Refill Less than 3 Seconds Skin: No rashes, No breakdown Musculoskeletal: No Tenderness to Palpation of Joints or Extremities Neurological: Cranial nerves II-XII grossly intact, Neuro grossly intact Psych/Mental Status: Normal Affect, Appropriate Patient seen and examined prior to discharge. Physical assessment as noted above. Patient is stable for discharge with follow up recommendations as noted above. This patient was seen by MARCUS Sultana under the supervision of Dr. Infante. - Physical Exam Vitals/I&O's: Vital Signs Temp Pulse Resp BP Pulse Ox 97.6 F L 51 L 16 103/43 L 98 10/12/19 08:26 10/12/19 08:26 10/12/19 08:26 10/12/19 08:26 10/12/19 08:26 Oxygen Delivery Method Room Air Weight: 126 lb 5.198 oz Body Mass Index (BMI) 24.3 Intake and Output for Last 24 Hours 10/10/19 10/11/19 10/12/19 23:59 23:59 23:59 Intake Total 2301.67 / 2801.67 2126.67 / 2126.67 Balance 2301.67 / 2801.67 2126.67 / 2126.67 Microbiology Past 72 Hours 10/11/19 17:55 Stool Enteric Bacteriology - Final Laboratory Results 10/11/19 13:25: WBC 25.2 H, RBC 4.90, Hgb 14.1, Hct 42.7, MCV 87.1, MCH 28.8, MCHC 33.0, RDW Std Deviation 39.8, RDW Coeff of Felipa 12.5, Plt Count 317, MPV 9.7, Immature Gran % (Auto) 0.600, Neut % (Auto) 89.4 H, Lymph % (Auto) 5.2 L, [place] % (Auto) 3.3, Eos % (Auto) 1.3, Baso % (Auto) 0.2, Absolute Neuts (auto) 22.5 H, Absolute Lymphs (auto) 1.32, Nucleated RBC % 0, Differential Comment COMMENT 10/11/19 13:25: Sodium 135 L, Potassium 2.6 L*, Chloride 98, Carbon Dioxide 29.0, Anion Gap 8, BUN 19 H, Creatinine 0.83, Estim Creat Clear Calc 54.36, Est GFR (MDRD) Af Amer 92, Est GFR (MDRD) Non-Af 76, BUN/Creatinine Ratio 23.0 H, Glucose 98, Calcium 9.0, Total Bilirubin 0.20, AST 13 L, ALT 15, Alkaline Phosphatase 82, Total Protein 6.9, Albumin 3.1 L, Globulin 3.8, Albumin/Globulin Ratio 0.8 L, Lipase 192 10/11/19 13:25: Magnesium 2.1 10/11/19 20:27: Sodium 134 L, Potassium 3.9, Chloride 106, Carbon Dioxide 20.0 L, Anion Gap 8, BUN 12, Creatinine 0.67, Estim Creat Clear Calc 67.34, Est GFR (MDRD) Af Amer 117, Est GFR (MDRD) Non-Af 96, BUN/Creatinine Ratio 17.9, Glucose 112 H, Calcium 8.3 L 10/12/19 05:42: WBC 8.8, RBC 3.90 L, Hgb 11.3 L, Hct 34.2 L, MCV 87.7, MCH 29.0, MCHC 33.0, RDW Std Deviation 40.7, RDW Coeff of Felipa 12.8, Plt Count 244, MPV 9.8, Immature Gran % (Auto) 0.600, Neut % (Auto) 90.3 H, Lymph % (Auto) 5.7 L, [place] % (Auto) 2.7, Eos % (Auto) 0.5, Baso % (Auto) 0.2, Absolute Neuts (auto) 8.0 H, Absolute Lymphs (auto) 0.50 L, Nucleated RBC % 0, Differential Comment SCANNED, Reactive Lymphocytes RARE 10/12/19 05:42: Sodium 139, Potassium 3.9, Chloride 108 H, Carbon Dioxide 25.0, Anion Gap 6, BUN 8, Creatinine 0.56, Estim Creat Clear Calc 80.57, Est GFR (MDRD) Af Amer 145, Est GFR (MDRD) Non-Af 120, BUN/Creatinine Ratio 14.4, Glucose 123 H, Calcium 7.9 L, Total Bilirubin 0.30, AST 14 L, ALT 18, Alkaline Phosphatase 61, Total Protein 5.3 L, Albumin 2.4 L, Globulin 2.9, Albumin/Globulin Ratio 0.8 L Current Medications Acetaminophen (Tylenol) 650 mg PO Q6H PRN PRN PRN Reason: Pain Score 1-10/Temp > 100.7 F Heparin Sodium (Porcine) (Heparin Na) 5,000 unit SC Q12 [facility] Last Admin: 10/12/19 09:32 Dose: 5,000 unit Documented by: Ciprofloxacin (Cipro) 400 mg in 200 mls @ 200 mls/hr IV Q12 [facility] Last Infusion: 10/12/19 10:40 Dose: Infused Documented by: Metronidazole (Flagyl) 500 mg in 100 mls @ 100 mls/hr IV Q8 [facility] Last Infusion: 10/12/19 08:04 Dose: Infused Documented by: Methylprednisolone (Solu-Medrol) 40 mg IV Q8 [facility] Last Admin: 10/12/19 05:52 Dose: 40 mg Documented by: Nutritional Formula (Lactose Free) (Ensure Clear) 120 ml PO 4X/DAY [facility] Last Admin: 10/12/19 09:32 Dose: 120 ml Documented by: Sodium Chloride () 10 - 40 ml IV UD PRN PRN Reason: SALINE FLUSH Discharge Diet: Light diet - advance as tolerated Discharge Activity: Return to Normal Activity Call your doctor if you observe: Fever of 101 or Higher, Shortness of breath, Dizziness, Fainting spells, Chest pain Home Medications: Medications to take at Discharge Mesalamine [Pentasa] 1,000 mg PO 4X/DAY 10/11/19 Tolterodine Tartrate [Detrol LA] 4 mg PO DAILY 10/11/19 Ciprofloxacin HCl 500 mg PO BID #14 tab 10/12/19 Ondansetron HCl [Zofran] 4 mg PO Q8H PRN PRN #20 tab 10/12/19 Prednisone See Taper PO DAILY #30 tab 10/12/19 metroNIDAZOLE [Flagyl] 500 mg PO Q8H #21 tab 10/12/19 Following Prescrptions Were Given to Patient: Ciprofloxacin HCl 500 mg PO BID #14 tab Transmission Status: Received by [facility] [id number] metroNIDAZOLE [Flagyl] 500 mg PO Q8H #21 tab Transmission Status: Received by [facility] [id number] Prednisone See Taper PO DAILY #30 tab Transmission Status: Received by [facility] [id number] Ondansetron HCl [Zofran] 4 mg PO Q8H PRN PRN #20 tab PRN Reason: Nausea Transmission Status: Received by [facility]11 Primary Care Physician: Garret Mcdermott DO [Primary Care Provider] - Please follow up with your Primary Care Physician in: 1 Week Please Follow Up With: Gastroenterology When: As scheduled Disposition: Home Minutes spent on discharge:: 35 Patient Condition:: Stable Medical Necessity - Tobacco Use Smoking Status: Current every day smoker Tobacco Use: Cigarettes Meaningful Use Info Meaningful Use Diagnoses (Choose all that apply): None applicable <Arnel Infante F - Last Filed: 10/12/19 11:23> Discharge Date and Diagnosis - Secondary Discharge Diagnosis Chronic Problems Overactive bladder (Chronic) Hospital Course and Treatment Summary of Care Provided: The patient is a 54 year old F [] - Physical Exam Vitals/I&O's: Vital Signs Temp Pulse Resp BP Pulse Ox 97.9 F 58 L 16 103/46 L 99 10/12/19 11:18 10/12/19 11:18 10/12/19 11:18 10/12/19 11:18 10/12/19 11:18 Oxygen Delivery Method Room Air Weight: 126 lb 5.198 oz Body Mass Index (BMI) 24.3 Intake and Output for Last 24 Hours 10/10/19 10/11/19 10/12/19 23:59 23:59 23:59 Intake Total 2301.67 / 2801.67 2426.67 / 2426.67 Balance 2301.67 / 2801.67 2426.67 / 2426.67 Microbiology Past 72 Hours 10/11/19 17:55 Stool Enteric Bacteriology - Final Laboratory Results 10/11/19 13:25: WBC 25.2 H, RBC 4.90, Hgb 14.1, Hct 42.7, MCV 87.1, MCH 28.8, MCHC 33.0, RDW Std Deviation 39.8, RDW Coeff of Felipa 12.5, Plt Count 317, MPV 9.7, Immature Gran % (Auto) 0.600, Neut % (Auto) 89.4 H, Lymph % (Auto) 5.2 L, [place] % (Auto) 3.3, Eos % (Auto) 1.3, Baso % (Auto) 0.2, Absolute Neuts (auto) 22.5 H, Absolute Lymphs (auto) 1.32, Nucleated RBC % 0, Differential Comment COMMENT 10/11/19 13:25: Sodium 135 L, Potassium 2.6 L*, Chloride 98, Carbon Dioxide 29.0, Anion Gap 8, BUN 19 H, Creatinine 0.83, Estim Creat Clear Calc 54.36, Est GFR (MDRD) Af Amer 92, Est GFR (MDRD) Non-Af 76, BUN/Creatinine Ratio 23.0 H, Glucose 98, Calcium 9.0, Total Bilirubin 0.20, AST 13 L, ALT 15, Alkaline Phosphatase 82, Total Protein 6.9, Albumin 3.1 L, Globulin 3.8, Albumin/Globulin Ratio 0.8 L, Lipase 192 10/11/19 13:25: Magnesium 2.1 10/11/19 20:27: Sodium 134 L, Potassium 3.9, Chloride 106, Carbon Dioxide 20.0 L, Anion Gap 8, BUN 12, Creatinine 0.67, Estim Creat Clear Calc 67.34, Est GFR (MDRD) Af Amer 117, Est GFR (MDRD) Non-Af 96, BUN/Creatinine Ratio 17.9, Glucose 112 H, Calcium 8.3 L 10/12/19 05:42: WBC 8.8, RBC 3.90 L, Hgb 11.3 L, Hct 34.2 L, MCV 87.7, MCH 29.0, MCHC 33.0, RDW Std Deviation 40.7, RDW Coeff of Felipa 12.8, Plt Count 244, MPV 9.8, Immature Gran % (Auto) 0.600, Neut % (Auto) 90.3 H, Lymph % (Auto) 5.7 L, [place] % (Auto) 2.7, Eos % (Auto) 0.5, Baso % (Auto) 0.2, Absolute Neuts (auto) 8.0 H, Absolute Lymphs (auto) 0.50 L, Nucleated RBC % 0, Differential Comment SCANNED, Reactive Lymphocytes RARE 10/12/19 05:42: Sodium 139, Potassium 3.9, Chloride 108 H, Carbon Dioxide 25.0, Anion Gap 6, BUN 8, Creatinine 0.56, Estim Creat Clear Calc 80.57, Est GFR (MDRD) Af Amer 145, Est GFR (MDRD) Non-Af 120, BUN/Creatinine Ratio 14.4, Glucose 123 H, Calcium 7.9 L, Total Bilirubin 0.30, AST 14 L, ALT 18, Alkaline Phosphatase 61, Total Protein 5.3 L, Albumin 2.4 L, Globulin 2.9, Albumin/Globulin Ratio 0.8 L Current Medications Acetaminophen (Tylenol) 650 mg PO Q6H PRN PRN PRN Reason: Pain Score 1-10/Temp > 100.7 F Heparin Sodium (Porcine) (Heparin Na) 5,000 unit SC Q12 [facility] Last Admin: 10/12/19 09:32 Dose: 5,000 unit Documented by: Ciprofloxacin (Cipro) 400 mg in 200 mls @ 200 mls/hr IV Q12 [facility] Last Infusion: 10/12/19 10:40 Dose: Infused Documented by: Metronidazole (Flagyl) 500 mg in 100 mls @ 100 mls/hr IV Q8 [facility] Last Infusion: 10/12/19 08:04 Dose: Infused Documented by: Methylprednisolone (Solu-Medrol) 40 mg IV Q8 [facility] Last Admin: 10/12/19 05:52 Dose: 40 mg Documented by: Nutritional Formula (Lactose Free) (Ensure Clear) 120 ml PO 4X/DAY [facility] Last Admin: 10/12/19 09:32 Dose: 120 ml Documented by: Sodium Chloride () 10 - 40 ml IV UD PRN PRN Reason: SALINE FLUSH Addendum: Dr. Infante I personally examined the patient and reviewed the chart. I agree with the above. 54-year-old female with a history of Crohn's presents with what she felt was a Crohn's flare. She had a CT scan that showed circumferential wall thickening of the terminal ileum as well as the colon. 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 She was started on Cipro and Flagyl as well as Solu-Medrol while here. Enteric pathology has been negative however she had been getting worse on steroids and then gotten better with some antibiotic dosing therefore will continue with Cipro/Flagyl dosing to complete a course for colitis as well as the prednisone taper. She will need to follow-up with her primary care doctor as an outpatient. I did discuss with her today that she could go home if she wanted to since she is stated she is feeling much better assuming that she could tolerate a diet. She expressed a desire to go home and given the option of staying 1 more day just to be sure that she consistently feels better and she asked to go home today. She did express understanding of the risks and benefits of discharge today. Inpatient E&M: 19039 Disch Hosp
[2019-10-12 11:18] VITALS: BP 103/46; PULSE 58; RESP 16; TEMP 36.6; O2SAT 99
== END 2019-10-12 13:12 | disposition home or self-care (01) ==
LOC: ED 14:05 → PCU 10-12 07:06
PROVIDERS: Admitting Provider Internal Medicine; Emergency Provider Emergency Medicine; PCP Student in an Organized Health Care Education/Training Program; Visit Provider Family Medicine
DX: K50.911 Crohn's disease, unspecified, with rectal bleeding (principal); E87.6 Hypokalemia; N32.81 Overactive bladder; Z79.899 Other long term (current) drug therapy; Z79.52 Long term (current) use of systemic steroids; F17.210 Nicotine dependence, cigarettes, uncomplicated
CPT/HCPCS: 36415; 74177; 80048; 80053; 83690; 83735; 85025; 87506; 93005; 96361; 96365; 96366; 96367; 96372; 96375; 96376; 97802; 99218; 99251; 99284; 99406; J7030; J7050; Q9967; A4216; G0378; G0463; J0744; J2405

== ENCOUNTER 2020-09-27 13:18 | Outpatient (RCR) | payer OTHER, SELFPAY ==
[2020-09-27] MEDS: COVID-19 VACC, MRNA(PFIZER)/PF 30 MCG/0.3 ML SYRINGE IM (14:00)
[2020-09-28 11:40] VITALS: BMI 27.3
[2020-10-18] MEDS: COVID-19 VACC, MRNA(PFIZER)/PF 30 MCG/0.3 ML SYRINGE IM (15:19)
== END 2020-12-18 23:59 ==
LOC: IMMUN 13:18
PROVIDERS: PCP Student in an Organized Health Care Education/Training Program; Referring Provider Family Medicine; Visit Provider Family Medicine
DX: Z23 Encounter for immunization (principal)
CPT/HCPCS: 0001A; 0002A; 91300

== ENCOUNTER 2020-09-28 11:39 | Emergency (ER) | payer OTHER, SELFPAY ==
[2019-10-11 17:09] VITALS: BMI 24.3
[2020-09-28 11:40] VITALS: BP 158/88; PULSE 93; RESP 18; TEMP 36.6; O2SAT 99; BMI 27.3
--- NOTE | 2020-09-28 12:20 | CT_ITS ---
STUDY: CT ABDOMEN AND PELVIS WITH CONTRAST REASON FOR EXAM: Female, 55 years old. Abdominal pain RADIATION DOSAGE (If Supplied By Facility): CTDIvol = ( 12.91 ) mGy, DLP = ( 745.37 ) mGycm TECHNIQUE: Transaxial images were obtained from the dome of the diaphragm to the symphysis pubis without oral contrast. 100 ML ISOVUE 300 was administered. Sagittal and coronal images were reconstructed. History of Crohn''s disease. Individualized dose optimization techniques were used for this CT. COMPARISON: None. FINDINGS: The visualized lung bases are unremarkable. Coronary artery calcification. There is decreased attenuation of the liver consistent with steatosis. Minimal degree of dilated intrahepatic biliary ducts. The patient is status post cholecystectomy. Normal spleen. There is diffuse atrophy of the pancreas. Normal bilateral adrenal glands. Normal right kidney. Normal left kidney. Normal visualized stomach. There is circumferential wall thickening of the terminal ileum. Minimal increased markings in the surrounding peritoneal fat. There are multiple colonic diverticula consistent with diverticulosis. The appendix is visualized and appears normal. There is diffuse atherosclerotic calcification of the abdominal aorta, without a demonstrated aneurysm. Normal inferior vena cava. Normal retroperitoneum. Normal urinary bladder. There is absence of the uterus consistent with a prior hysterectomy. Normal abdominal wall. There are mild degenerative changes of the visualized lumbar spine. CT/Abdomen/Pelvis W IV Cont ONLY IMPRESSION: Circumferential wall thickening of the terminal ileum with mild increased markings in the surrounding peritoneal fat. This may represent recurrent Crohn''s disease. Electronically Signed: Manfred Gomez MD at 13:36 EDT , Service support ,
--- NOTE | 2020-09-28 12:20 | ED.VIS.GEN ---
History of Present Illness Chief Complaint: Abd Pain Informant: Patient Narrative: 55-year-old female with history of Crohn's disease presenting for abdominal pain. She states she was initially diagnosed in 2019 but has had longstanding bowel problems her whole life. She sees Dr. Perea in her outpatient has a GI physician. He is only doing telehealth with her. She saw him in August via the [facility]. He did not change her medications. She is on methotrexate. Patient states he did not put her on steroids. She states he told her to stop exercising. She continues to have burning pain throughout her abdomen. She also complains of some constipation has not had a bowel movement in 2 days. She is passing flatus. She not had fever, chills. She has nausea without vomiting. She denies urinary or vaginal complaints. No previous surgeries for her Crohn's disease. Past Medical History - Allergies and Home Meds Allergies/Adverse Reactions: Allergies latex Allergy (Intermediate, Verified 09/28/20 11:42) [facility] Care Physician: Garret Mcdermott DO [Primary Care Provider] - Prior records reviewed: Yes Past Medical History: - - Crohn's disease Surgical History: appendectomy, cholecystectomy, hysterectomy, tonsillectomy, - - Bilateral mastectomy, lysis of adhesions Lives: Spouse/ Significant Other Smoking Status: Current every day smoker Alcohol: None Drugs: None - Family History Maternal Family History: Reports: - - mother sides alzheimers Paternal Family History: Reports: - - Denies known paternal medical history including cardiac history. Review of Systems General: Denies: Chills, Fever, Sweats Eyes: Denies: Visual changes - bilaterally, Diplopia ENT: Denies: Rhinorrhea, Sore throat Cardiovascular: Denies: Chest pain, Palpitations Respiratory: Denies: Dyspnea, Cough, Dyspnea on exertion Gastrointestinal: Reports: Abdominal pain, Nausea, Constipation. Denies: Vomiting, Diarrhea, Melena, Hematochezia Genitourinary: Denies: Dysuria, Hematuria Musculoskeletal: Denies: Back pain, Extremity Pain Skin: Denies: Rash, Wounds Neurological: Denies: Headache, Weakness, Numbness Psych: Denies: Depression, Anxiety, Suicidal thoughts, Suicidal ideations, -, - Physical Exam Vital Signs/Narrative: Vital Signs Temp Pulse Resp BP Pulse Ox 09/28/20 11:40 98 F 93 18 158/88 H 99 Inital Vital Signs reviewed: Yes General: Well nourished Head: Normocephalic, Atraumatic Eyes: Perrl, EOMI. Negative for: Scleral icterus ENT: Moist mucous membranes, No rhinorrhea Cardiovascular: Regular rate, Tachycardia Respiratory: No distress, CTA bilaterally Abdomen: Soft, Tender - Generalized tenderness to palpation. Abdomen is nonperitoneal. Back: Nontender, Normal Inspection Extremities: Nontender, No edema Skin: Normal color, No rash. Negative for: Cyanosis, Diaphoresis, Jaundice Neurological: Alert, Oriented x3, Cranial nerves II-XII grossly intact Psychological: Normal affect, Normal Mood Diagnostic/Tx/Re-eval Clinical Impression(s) from Imaging Studies Abdomen/Pelvis CT 09/28/20 12:20 IMPRESSION: Circumferential wall thickening of the terminal ileum with mild increased markings in the surrounding peritoneal fat. This may represent recurrent Crohn''s disease. Electronically Signed: Manfred Gomez MD at 13:36 EDT , Service support , Laboratory Data 09/28/20 09/28/20 09/28/20 12:40 12:40 13:45 WBC 13.1 H RBC 4.32 Hgb 13.8 Hct 43.5 MCV 100.7 H MCH 31.9 MCHC 31.7 L RDW Std Deviation 46.2 H RDW Coeff of Felipa 12.6 Plt Count 282 MPV 9.6 Immature Gran % (Auto) 0.300 Neut % (Auto) 84.0 H Lymph % (Auto) 10.9 L [place] % (Auto) 4.3 Eos % (Auto) 0.3 Baso % (Auto) 0.2 Absolute Neuts (auto) 11.0 H Absolute Lymphs (auto) 1.43 Nucleated RBC % 0 Sodium 142 Potassium 3.5 Chloride 108 H Carbon Dioxide 29.0 Anion Gap 5 BUN 10 Creatinine 0.79 Estim Creat Clear Calc 56.44 Est GFR (MDRD) Af Amer 96 Est GFR (MDRD) Non-Af 79 BUN/Creatinine Ratio 12.6 Glucose 97 Calcium 9.2 Total Bilirubin 0.30 AST 9 L ALT 19 Alkaline Phosphatase 101 Total Protein 7.2 Albumin 3.6 Globulin 3.6 Albumin/Globulin Ratio 1.0 Lipase 59 L Urine Color Yellow Urine Clarity Clear Urine pH 7.0 Ur Specific Palmer 1.010 Urine Protein Negative Urine Glucose (UA) Normal Urine Ketones Negative Urine Occult Blood 10 H Urine Nitrite Negative Urine Bilirubin Negative Urine Urobilinogen Normal Ur Leukocyte Esterase 25 H Urine RBC 0-5 SEEN Urine WBC 0-5 SEEN Ur Squamous Epith Cells 0-5 SEEN Urine Bacteria 0 SEEN Urine Mucus 0 SEEN - Medical Decision Making 55-year-old female with history of Crohn's disease presenting with concern for Crohn's flare. She states she is talked to her GI doctor who did not prescribe her anything for outpatient. Lab work and imaging was obtained and she has a slight leukocytosis of 13,000 however otherwise her lab work is unremarkable. Patient was given IV fluids and a couple doses of morphine IV with Zofran she had some improvement in her pain. 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 She did not want to be admitted to the hospital so I gave her a dose of Solu-Medrol 125 mg IV. I will start her on a prednisone taper for home. She is also given Zofran. She does not request any other narcotic pain medication. She is given return precautions. Patient stable for discharge. Impression: 1. Crohn's flare 2. Leukocytosis ED Disposition - Plan for ED Patient: Disposition: Home or Assisted Living Instructions: Crohn's Disease Prescriptions: Prednisone 10 mg PO UD #33 tablet Transmission Status: Received by [facility] Ondansetron [Zofran Odt] 4 mg PO Q8H PRN PRN #12 tablet PRN Reason: Nausea Transmission Status: Received by [facility] Referrals: Garret Mcdermott DO [Primary Care Provider] -
[2020-09-28] MEDS: Ondansetron 4 MG/2 ML Vial IV (12:44)
[2020-09-28] MEDS: 0.9% Normal Saline 1,000 ML 1000 ML IV (12:44)
[2020-09-28] MEDS: Morphine 4 MG/ML Syringe IV ×2 (12:44→14:01)
[2020-09-28 13:03] LABS: Absolute Lymphocyte Count 1.43 X10^3/uL (0.83-4.51); Basophil# 0.02 X10^3/uL; Basophil% 0.2 % (0-1); Eosinophil# 0.04 X10^3/uL; Eosinophils% 0.3 % (0-5); Hematocrit 43.5 % (37-47); Hemoglobin 13.8 g/dL (12.0-15.0); Lymphocyte # 1.43 X10^3/ul (4.0); Lymphocyte % 10.9 % (19-41); Mean Corp Hgb Conc 31.7 g/dL (32-36); Mean Corpuscular Hgb 31.9 pg (27.0-32.0); Mean Corpuscular Volume 100.7 fL (81-99); Mean Platelet Vol. 9.6 fl (6.2-12.0); Monocyte# 0.56 X10^3/uL; Monocyte% 4.3 % (0-10); NRBC Flagged by Analyzer 0 % (0-5); Neutrophil # 11.01 X10^3/uL (2.7-7.7); Platelet Count 282 K/mm3 (150-450); RBC Distribution Width CV 12.6 % (11.6-14.6); RBC Distribution Width SD 46.2 fl (35.1-43.9); Red Blood Count 4.32 M/mm3 (4.2-5.4); White Blood Count 13.1 K/mm3 (4.4-11.0)
[2020-09-28 13:13] LABS: AST(SGOT) 9 U/L (15-37); Alanine Aminotransfer ALT/SGPT 19 U/L (13-56); Albumin, Serum 3.6 g/dL (3.2-5.0); Alkaline Phosphatase 101 U/L (45-117); Anion Gap 5 (5-15); BUN 10 mg/dL (7-18); BUN/Creat Ratio 12.6 RATIO (10-20); Calcium,Total 9.2 mg/dL (8.5-10.1); Chloride 108 mmol/L (98-107); Creatinine, Serum 0.79 mg/dL (0.55-1.02); EST Glomerular Filtration Rate 79 mL/min (>60); Est Glom Filt Rate - Afr Amer 96 mL/min (>60); Estimated Creatinine Clearance 56.44 ml/min; Globulin 3.6 g/dL (2.2-4.2); Glucose 97 mg/dL (74-106); Lipase 59 U/L (73-393); Potassium 3.5 mmol/L (3.5-5.1); Protein, Total 7.2 g/dL (6.4-8.2); Sodium Level 142 mmol/L (136-145)
[2020-09-28 13:49] LABS: Bacteria 0 SEEN /hpf (None Seen); Mucous, Urine 0 SEEN /hpf (<or=2+)
[2020-09-28 13:52] LABS: Color, Urine Yellow (Yellow); Glucose, Dipstick Normal (Normal); Ketone-Dipstick Negative (Negative); Leukocyte Esterase-Dipstick 25 /ul (Negative); Nitrite-Dipstick Negative (Negative); Occult Blood-Urine 10 /ul (Negative); Protein-Dipstick Negative (Negative); Urine Bilirubin Dipstick Negative (Negative); Urine Clarity Clear (Clear); Urine Urobilinogen Normal (Normal)
[2020-09-28 14:01] LABS: Red Blood Cells-Urine 0-5 SEEN /hpf (0-5); Squamous Epithelial Cells - UA 0-5 SEEN /hpf (5-10); White Blood Cells 0-5 SEEN /hpf (0-5)
[2020-09-28] MEDS: MethylPREDNISolone 125 MG/2 ML Vial IV (14:01)
[2020-09-28 14:05] VITALS: BP 117/58; PULSE 78; RESP 18; O2SAT 99
== END 2020-09-28 14:11 | disposition home or self-care (01) ==
PROVIDERS: Emergency Provider Student in an Organized Health Care Education/Training Program; PCP Student in an Organized Health Care Education/Training Program
DX: K50.90 Crohn's disease, unspecified, without complications (principal); D72.829 Elevated white blood cell count, unspecified; Z90.49 Acquired absence of other specified parts of digestive tract; F17.200 Nicotine dependence, unspecified, uncomplicated; Z79.899 Other long term (current) drug therapy
CPT/HCPCS: 74177; 80053; 81001; 83690; 85025; 96361; 96374; 96375; 96376; 99283; J7030; Q9967; A4216; J2405

== ENCOUNTER → 2022-11-26 | Outpatient (CLI) | payer BC, MEDICARE, MEDICAID, SELFPAY ==
--- NOTE | 2022-11-26 18:06 | RAD_ITS ---
INDICATION: PAIN EXAMINATION/TECHNIQUE: X-RAY - XR Spine Lumbar 2 or 3 Views COMPARISON: Comparison abdominal CT 09/28/2020. FINDINGS: 2 views of the lumbar spine. BONES: T11, L2, and L5 vertebral body compression deformities containing vertebroplasty cement. No concerning bony lesion or abnormal sclerosis to suggest lesion. DISCS/JOINTS: Mild to moderate multilevel degenerative disc disease. SOFT TISSUES: Dense atherosclerotic vascular calcifications. There appears to be small amount of methylmethacrylate infiltrated along right paraspinous muscle. Few scattered air-fluid levels within nondilated right abdominal bowel loops, suggesting mild ileus formation. RAD/Lumbar Spine 2 or 3 Views IMPRESSION: T11, L2, and L5 vertebral body compression deformities containing vertebroplasty cement. If there is persistent clinical concern for acute spine fracture and this is a trauma patient, recommend dedicated lumbar spine CT. Few scattered air-fluid levels within nondilated right abdominal bowel loops, suggesting mild ileus formation. Electronically Signed: Evan Lujan MD at 5:14 EDT ,
== END | disposition home or self-care (01) ==
LOC: RAD 17:58
PROVIDERS: Referring Provider Anesthesiology Pain Medicine; Visit Provider Anesthesiology Pain Medicine
DX: M80.08XA Age-related osteoporosis with current pathological fracture, vertebra(e), initial encounter for fracture (principal); M47.816 Spondylosis without myelopathy or radiculopathy, lumbar region
CPT/HCPCS: 72100

== ENCOUNTER → 2022-12-24 | Outpatient (CLI) | payer BC, MEDICARE, MEDICAID, SELFPAY ==
[2022-12-24 17:19] LABS: Amphetamine Urine VISTA NEGATIVE (<1000 ng/mL); Barbiturate Urine VISTA NEGATIVE (< 200 ng/mL); Benzodiazepine Urine VISTA NEGATIVE (< 200 ng/mL); Cocaine Urine VISTA NEGATIVE (< 300 ng/mL); Ecstacy Urine VISTA NEGATIVE (< 500 ng/mL); Methadone Urine VISTA NEGATIVE (< 300 ng/mL); PCP Urine VISTA NEGATIVE (< 25 ng/mL); THC Urine VISTA NEGATIVE (< 50 ng/mL); Vista UDS pH Range 6
== END | disposition home or self-care (01) ==
LOC: LAB 15:58
PROVIDERS: PCP Student in an Organized Health Care Education/Training Program; Referring Provider Anesthesiology Pain Medicine; Visit Provider Anesthesiology Pain Medicine
DX: F11.20 Opioid dependence, uncomplicated (principal)
CPT/HCPCS: 80307

== ENCOUNTER → 2023-02-18 | Outpatient (CLI) | payer BC, MEDICARE, MEDICAID, SELFPAY ==
--- NOTE | 2023-02-18 12:20 | RAD_ITS ---
EXAM: XR LEFT KNEE, 3 VIEWS CLINICAL INDICATION: LEFT KNEE PAIN TECHNIQUE: Three views of the left knee. COMPARISON: No relevant prior studies available. FINDINGS: BONES/JOINTS: Prominent suprapatellar enthesophyte. No acute or healing fracture or malalignment. No significant joint effusion. No unusual lytic or sclerotic lesions of bone. SOFT TISSUES: Unremarkable. No soft tissue swelling or gas. No radiopaque foreign body. VASCULATURE: Atherosclerotic calcifications of the visualized popliteal and femoral artery. RAD/Knee 4 or More Views IMPRESSION: No acute or healing fracture or malalignment. Electronically Signed: Dean Perez MD at 1:59 EDT ,
== END | disposition home or self-care (01) ==
LOC: RAD 12:08
PROVIDERS: PCP Student in an Organized Health Care Education/Training Program; Referring Provider Anesthesiology Pain Medicine; Visit Provider Anesthesiology Pain Medicine
DX: M17.12 Unilateral primary osteoarthritis, left knee (principal)
CPT/HCPCS: 73564

== ENCOUNTER → 2023-04-15 | Outpatient (CLI) | payer BC, MEDICARE, MEDICAID, SELFPAY ==
--- NOTE | 2023-04-15 14:50 | RAD_ITS ---
STUDY: X-RAY - THORACIC SPINE REASON FOR EXAM: Female, 57 years old. Fall. Pain. TECHNIQUE: 2 view(s) of the thoracic spine were obtained. COMPARISON: None. FINDINGS: Mild osteopenia. Slight increased kyphosis. No substantial scoliosis. Endplate concavities compatible with mild osteoporosis. Kyphoplasty changes at L1 and L3. Diffuse mild intervertebral disc space narrowing with small osteophytes. Marked vascular calcification. RAD/Thoracic Spine 2 Views IMPRESSION: Osteopenia with diffuse mild thoracolumbar spondylosis. No acute abnormality. Electronically Signed: Mahesh Lopez MD at 15:47 EDT ,
== END | disposition home or self-care (01) ==
LOC: RAD 14:44
PROVIDERS: PCP Student in an Organized Health Care Education/Training Program; Referring Provider Anesthesiology Pain Medicine; Visit Provider Anesthesiology Pain Medicine
DX: R52 Pain, unspecified (principal)
CPT/HCPCS: 72070